=== PATIENT | female | born 1950 | race Caucasian/White ===

== ENCOUNTER 2019-12-03 11:13 | Inpatient (IN) | payer MEDICARE, MEDICAID ==
[2019-12-03] MEDS ORDERED: Potassium Chloride 40 MEQ in Sodium Chloride 0.9% 250 ML 250 ML IVPB SCH ×2 (12:00→19:30)
[2019-12-03] MEDS ORDERED: Ondansetron PF 4 MG/2 ML Vial ONE (12:01)
[2019-12-03 12:28] LABS: Mean Corpuscular HGB CONC 33.2 g/dL (32.0-36.0); Mean Corpuscular Hemoglobin 31.1 pg (27.0-31.0); Mean Corpuscular Volume 93.8 fL (78.0-98.0); Mean Platelet Volume 10.6 fL (7.4-10.4); Platelet Count 276 thou/uL (130-400); RBC Distribution Width 14.3 % (11.5-14.5); Red Blood Cell (RBC) Count 4.49 mill/uL (4.20-5.40); White Blood Cell (WBC) Count 11.7 thou/uL (4.8-10.8)
[2019-12-03 12:44] LABS: ALT (SGPT) 7 U/L (8-55); AST (SGOT) 9 U/L (5-34); Albumin 3.9 g/dL (3.4-4.8); Alkaline Phosphatase 254 U/L (40-110); Anion Gap 18 mmol/L (10-20); BUN (Urea Nitrogen) 36 mg/dL (9.8-20.1); Bilirubin, Total 0.4 mg/dL (0.2-1.2); Calc. Creatinine Clearance 0 mL/min (70-130); Calcium 8.6 mg/dL (7.8-10.44); Carbon Dioxide 10 mmol/L (23-31); Chloride 116 mmol/L (98-107); Estimated GFR-MDRD 22; Globulin 4.3 g/dL (2.4-3.5); Glucose 128 mg/dL (80-115); Magnesium 1.4 mg/dL (1.6-2.6); Protein, Total 8.2 g/dL (6.0-8.3); Sodium 141 mmol/L (136-145)
[2019-12-03 12:47] LABS: Band 43 % (5-11); Lymphocytes 12 % (21-51); MDiff Complete? YES; Monocytes 8 % (0-10); Neutrophil 35 % (42-75); Platelet Morphology Comment Appears Adequate; Reactive Lymphocytes 1 % (0-10); Reflex for Review?? NO; Vacuoles SLIGHT
[2019-12-03 13:02] LABS: Potassium 2.9 mmol/L (3.5-5.1)
[2019-12-03] MEDS ORDERED: Magnesium 2 GM/50 ML BAG (IN WATER) ONE (13:17)
[2019-12-03] MEDS ORDERED: Potassium Chloride 20 MEQ TAB ONE (13:17)
--- NOTE | 2019-12-03 13:24 | PDOC.HHP ---
Hospitalist HPI - History of Present Illness nausea, vomiting, diarrhea History of Present Illness: 68-year-old female w/ mhx of CHFrEF, LBBB (not on lifevest due to blindness as per recent DC summary), HTN, CVA, COPD, gastritis, presents from rehab for nausea, vomiting, and diarrhea for the past week. Started suddenly, 4-5 daily bowel movement, soft but not watery, not associated with abdominal pain, melena, or hematochezia, recent antibiotic use or hospitalization. Came to the ED yetserday, CT abdomen was negative, and was sent back to rehab but nausea and vomiting persisted, so came back to the ED. On encounter. lying comfortably in bed and has no complaints. Endorses no additional epsiodes of n/v but had an episode of watery diarrhea on arrival to the floor. Denies lightheadedness, dizziness, dysphagia, chest pain, palpitations, dyspnea, abdominal pain, dysuria, hematuria, polyuria, increased urinary frequency, muscle pain, focal weakness. ED Course: In the ED, started on fluids, supplemented with potassium and magnesium, and admitted for further management Hospitalist ROS - Review of Systems Constitutional: denies: chills, sweats Respiratory: denies: cough, shortness of breath Cardiovascular: denies: chest pain, palpitations, orthopnea, edema Gastrointestinal: reports: diarrhea. 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: CVA Gastrointestinal: reports: Gastritis Psych: reports: Depression Infectious Disease: denies: HIV Endocrine: denies: Hyperthyroidism - Past Surgical History Other Surgical History: rotator cuff, lower intestine surgery - Family History Family History: reports: no pertinent history - Social History Smoking Status: Former smoker (quit less than 10 years ago) Alcohol: reports: None Drugs: reports: none Living Situation: With Family - Exam General Appearance: NAD, awake alert ENT: moist mucosa Neck: no JVD Heart: RRR, no gallops, no rubs Respiratory: CTAB, no wheezes, no rales, no ronchi Gastrointestinal: soft, non-tender, non-distended, normal bowel sounds Extremities: no edema Psychiatric: normal affect, normal behavior, A&O x 3 Hospitalist Results - Labs Result Diagrams: 12/03/19 12:11 12/03/19 14:39 Lab results: WBC 11.7 thou/uL (4.8-10.8) H 12/03/19 12:11 Hgb 14.0 g/dL (12.0-16.0) 12/03/19 12:11 Hct 42.2 % (36.0-47.0) 12/03/19 12:11 MCV 93.8 fL (78.0-98.0) 12/03/19 12:11 Plt Count 276 thou/uL (130-400) 12/03/19 12:11 Band Neuts % (Manual) 43 % (5-11) H 12/03/19 12:11 Sodium 141 mmol/L (136-145) 12/03/19 12:11 Potassium 2.9 mmol/L (3.5-5.1) L* 12/03/19 12:11 Chloride 116 mmol/L (98-107) H 12/03/19 12:11 Carbon Dioxide 10 mmol/L (23-31) L 12/03/19 12:11 BUN 36 mg/dL (9.8-20.1) H 12/03/19 12:11 Creatinine 2.25 mg/dL (0.6-1.1) H 12/03/19 12:11 Glucose 128 mg/dL (80-115) H 12/03/19 12:11 Calcium 8.6 mg/dL (7.8-10.44) 12/03/19 12:11 Total Bilirubin 0.4 mg/dL (0.2-1.2) 12/03/19 12:11 AST 9 U/L (5-34) 12/03/19 12:11 ALT 7 U/L (8-55) L 12/03/19 12:11 Alkaline Phosphatase 254 U/L (40-110) H 12/03/19 12:11 Serum Total Protein 8.2 g/dL (6.0-8.3) 12/03/19 12:11 Albumin 3.9 g/dL (3.4-4.8) 12/03/19 12:11 - EKG Interpretation EKG: LBBB (old); DENISE but doesn't meet sgarbosa. No interval change compared to EKG in 11/19/2019 Hospitalist H&P A/P - Problem (1) CHF (congestive heart failure), NYHA class III Code(s): I50.9 - HEART FAILURE, UNSPECIFIED Status: Acute (2) Left bundle branch block (LBBB) Code(s): I44.7 - LEFT BUNDLE-BRANCH BLOCK, UNSPECIFIED Status: Acute (3) Legal blindness Code(s): H54.8 - LEGAL BLINDNESS, DEFINED IN [place] Status: Acute (4) COPD (chronic obstructive pulmonary disease) Status: Acute (5) Hypertension Code(s): I10 - ESSENTIAL (PRIMARY) HYPERTENSION Status: Acute - Plan Plan: #acute community acquired gastroenteritis/colitis -high risk for complications (age, heart disease) -cipro 500mg PO bid; if c. diff positive, change to vancomycin -IVF, gentle considering significantly reduced cardiac function -loperamide -electrolyte replacement -c. diff, stool studies #HFrEF Class III -signficantly reduced HF, QRS > 150ms; candidate for Biv pacing but was assessed by cardiology in previous admission and reportedly not approved for SCD PPx due to blindness -currently volume depleted -consult EP for DIGITAL MARKETING EXECUTIVE -pending medication reconciliation #HTN pending medication reconciliation #COPD -well controlled; resume home meds after reconciliation #legally blind aid with meals Full code ELOS: 1-2 nights
[2019-12-03] MEDS ORDERED: Ondansetron PF 4 MG/2 ML Vial IVP PRN (14:09)
[2019-12-03 15:08] LABS: Anion Gap 20 mmol/L (10-20); BUN (Urea Nitrogen) 36 mg/dL (9.8-20.1); Calc. Creatinine Clearance 0 mL/min (70-130); Calcium 8.8 mg/dL (7.8-10.44); Chloride 116 mmol/L (98-107); Estimated GFR-MDRD 24; Glucose 115 mg/dL (80-115); Sodium 141 mmol/L (136-145)
[2019-12-03 15:17] LABS: Carbon Dioxide 8 mmol/L (23-31); Potassium 2.7 mmol/L (3.5-5.1)
[2019-12-03 18:31] LABS: BUN (Urea Nitrogen) 37 mg/dL (9.8-20.1); Calc. Creatinine Clearance 0 mL/min (70-130); Calcium 8.7 mg/dL (7.8-10.44); Chloride 118 mmol/L (98-107); Estimated GFR-MDRD 25; Glucose 104 mg/dL (80-115); Potassium 3.2 mmol/L (3.5-5.1); Sodium 140 mmol/L (136-145)
[2019-12-03 18:35] LABS: Carbon Dioxide Less than 8 mmol/L (23-31)
[2019-12-03] MEDS ORDERED: Loperamide HCl 2 MG CAP PO PRN (19:00)
[2019-12-03] MEDS ORDERED: traZODone HCl 50 MG TAB PO PRN (19:00)
[2019-12-03] MEDS ORDERED: Nitroglycerin 0.4 MG TAB (25 Tab Bottle) SL PRN (19:00)
[2019-12-03] MEDS ORDERED: Calcium Carbonate 500 MG ChewTAB PO PRN (19:00)
[2019-12-03] MEDS ORDERED: Bisacodyl 10 MG SUPP PR PRN (19:00)
[2019-12-03] MEDS ORDERED: Cepastat Lozenges 1 LOZ PO PRN (19:08)
[2019-12-03] MEDS ORDERED: Sodium Bicarbonate 50 MEQ in Dextrose 5% in Water 250 ML IV SCH (19:45)
[2019-12-03] MEDS: Sodium Bicarbonate 150 MEQ in Dextrose 5% in Water 1,000 ML IV SCH (20:54)
[2019-12-03] MEDS: Carvedilol 3.125 MG TAB PO SCH (20:54)
[2019-12-03] MEDS: Ciprofloxacin 500 MG TAB PO SCH (20:54)
[2019-12-04 01:44] LABS: Anion Gap 14 mmol/L (10-20); BUN (Urea Nitrogen) 37 mg/dL (9.8-20.1); Calc. Creatinine Clearance 27 mL/min (70-130); Calcium 8.5 mg/dL (7.8-10.44); Carbon Dioxide 13 mmol/L (23-31); Chloride 118 mmol/L (98-107); Estimated GFR-MDRD 30; Glucose 100 mg/dL (80-115); Potassium 3.7 mmol/L (3.5-5.1); Sodium 141 mmol/L (136-145)
[2019-12-04 04:59] LABS: #Eosinphils 0.2 thou/uL (0.0-0.7); #Lymphocytes 1.1 thou/uL (1.20-3.40); #Monocytes 0.7 thou/uL (0.11-0.59); #Neutrophils 6.3 thou/uL (1.40-6.50); %Basophils 0.2 % (0.0-1.0); %Eosinophils 1.8 % (0.0-10.0); %Lymphocytes 13.7 % (21.0-51.0); %Monocytes 8.9 % (0.0-10.0); %Neutrophils 75.4 % (42.0-75.0); Hemoglobin 12.2 g/dL (12.0-16.0); Mean Corpuscular HGB CONC 33.2 g/dL (32.0-36.0); Mean Corpuscular Hemoglobin 30.5 pg (27.0-31.0); Mean Corpuscular Volume 91.9 fL (78.0-98.0); Mean Platelet Volume 10.5 fL (7.4-10.4); Platelet Count 252 thou/uL (130-400); RBC Distribution Width 14.3 % (11.5-14.5); Red Blood Cell (RBC) Count 4.01 mill/uL (4.20-5.40); White Blood Cell (WBC) Count 8.3 thou/uL (4.8-10.8)
[2019-12-04 05:23] LABS: Anion Gap 14 mmol/L (10-20); BUN (Urea Nitrogen) 36 mg/dL (9.8-20.1); Calc. Creatinine Clearance 29 mL/min (70-130); Calcium 8.6 mg/dL (7.8-10.44); Carbon Dioxide 13 mmol/L (23-31); Chloride 117 mmol/L (98-107); Estimated GFR-MDRD 33; Glucose 104 mg/dL (80-115); Potassium 3.3 mmol/L (3.5-5.1); Sodium 141 mmol/L (136-145)
[2019-12-04] MEDS: Ciprofloxacin 500 MG TAB PO SCH ×2 (06:24→20:26)
[2019-12-04] MEDS ORDERED: Potassium Chloride 40 MEQ in Premix Bag 1 BAG IVPB SCH (07:30)
[2019-12-04] MEDS ORDERED: Potassium Chloride 40 MEQ in Sodium Chloride 0.9% 250 ML 250 ML IVPB SCH ×2 (07:45→17:30)
[2019-12-04] MEDS: Clopidogrel Bisulfate 75 MG TAB PO SCH (08:07)
[2019-12-04] MEDS: Carvedilol 3.125 MG TAB PO SCH ×2 (08:07→20:27)
[2019-12-04] MEDS: Enoxaparin Sodium 30 MG/0.3 ML SYRINGE SC SCH (08:07)
[2019-12-04] MEDS: Bupropion 150 MG XL TAB PO SCH (08:07)
[2019-12-04] MEDS: Acetaminophen 500 MG TAB PO PRN ×2 (08:09→20:27)
[2019-12-04] MEDS ORDERED: hydrALAZINE 20 MG/ML VIAL SLOW IVP PRN (14:08)
--- NOTE | 2019-12-04 14:23 | CON ---
DATE OF CONSULTATION: 12/04/2019 Dictated by Edna Tracey, Nurse Practitioner, as scribe for Dr. Juan Kim. ELECTROPHYSIOLOGY CONSULTATION: REASON FOR CONSULTATION: Consideration of pacemaker defibrillator, cardiomyopathy. CONSULTING PHYSICIAN: Dr. Juan Kim. HISTORY OF PRESENT ILLNESS: Ms. Valente is a 68-year-old woman, who is followed by Dr. Jain for Cardiology. She was diagnosed with [id number] cardiomyopathy in 2013. At that time, there is no significant CAD. Her LVEF recovered in 2015, but once again dropped to approximately 46% in 2018 by a stress test. She has no history of coronary artery disease. She was hospitalized earlier this month with acute on chronic systolic heart failure and was found to have an LVEF of 25% to 30%. Left heart catheterization was performed and did not reveal any significant coronary artery disease. She underwent evaluation for a LifeVest, but there were concerns with her operating the device, being legally blind and living alone. She was started on guideline directed medication therapy and discharged. She recently returned to the hospital, reporting nausea, vomiting, and diarrhea for 1 week with 4 to 5 bowel movements a day. On 12-lead EKG, she was seen to have a significantly widened QRS, greater than 150 milliseconds, and a left bundle-branch block pattern, and EP consideration for a LICENSED ESTHETICIAN device has been requested. Ms. Valente is resting in bed. She denies any heart racing, palpitations, chest pain/pressure, syncope, stroke, or stroke-like symptoms. She has had no dizziness or near passing out episodes. She has not noticed any worsening shortness of breath since discharge from her recent hospitalization. She does endorse ongoing diarrhea. REVIEW OF SYSTEMS: A 12-point review of systems is unremarkable except that listed above in the HPI. PAST MEDICAL HISTORY: 1. Hypertension. 2. Hyperlipidemia. 3. Nonischemic cardiomyopathy, HFrEF, LVEF 25% to 30% by echo on 11/20/2019, previously 46% in 2018. 4. COPD. 5. Prior stroke. 6. Acid reflux. 7. Legally blind. 8. Left heart catheterization in November 2019 revealing no significant coronary artery disease. No prior PCI. 9. Ongoing tobacco habituation. FAMILY HISTORY: Positive for coronary artery disease, early-onset. Negative for sudden cardiac . SOCIAL HISTORY: She is legally blind. She resides alone. She does not work. She has home health throughout the week. ALLERGIES: NO KNOWN DRUG ALLERGIES. HOME MEDICATIONS: 1. Trazodone. 2. Cepacol. 3. Gas Relief. 4. Nitro sublingual p.r.n. 5. Milk of magnesia p.r.n. 6. Guaifenesin DM p.r.n. 7. MiraLAX 17 g daily. 8. Protonix 40 mg daily. 9. Lisinopril 10 mg daily. 10. Gemfibrozil 600 mg p.o. b.i.d. 11. Clopidogrel 75 mg b.i.d. 12. Carvedilol 3.125 mg b.i.d. 13. Bupropion 150 mg daily. 14. Atorvastatin 40 mg p.o. at bedtime. OBJECTIVE: VITAL SIGNS: Height is 5 feet and 4 inches. Weight 119 pounds. BMI is 20. Temperature is 98.6, pulse 63, blood pressure 162/71, respirations 16, and oxygen 99% on room air. GENERAL: The patient is alert. She is oriented. She is in no apparent distress, resting comfortably in bed at the time of the exam. She is thin. She appears much older than her stated age. HEENT: She is normocephalic and atraumatic. Her sclerae are anicteric. Her oral mucosa is moist and pink with poor dentition. NECK: Supple without jugular venous distention. There is no lymphadenopathy. Her trachea is midline. Her carotids are without bruit. HEART: Rate is regularly regular with crisp S1 and S2. PMI is nondisplaced. LUNGS: Clear to auscultation with slight expiratory wheezes bilaterally. Respirations are even and unlabored with good bilateral excursion. ABDOMEN: Soft, nontender without palpable masses. Hepatojugular reflux is negative. EXTREMITIES: Warm and dry to touch. Well perfused without clubbing, cyanosis, or edema. NEUROLOGIC: Grossly intact and nonfocal. Gait was not assessed. LABORATORY DATA: Hematology was reviewed and unremarkable. Chemistry: Potassium 2.9 on admission, currently 3.3; creatinine 2.25 on admission, currently 1.55; magnesium 1.4 on admission, currently 2.1. Telemetry and EKG show sinus rhythm with an underlying left bundle-branch block, currently 178 milliseconds, also suggestive of left ventricular hypertrophy. Reports from prior EKGs dating back to 2017 were reviewed. In 2017, her QRS was 138 milliseconds and a left bundle-branch block morphology. In August 2017, her QRS was 166 milliseconds and a left bundle-branch block morphology. Echocardiogram performed on 11/20/2019, reveals LVEF 25% to 30% (previously 46% in 2018 on a stress test that was negative for ischemia). Normal left heart catheterization on 11/21/2019. No prior history of PCI. IMPRESSION: 1. Nonischemic cardiomyopathy, heart failure with reduced ejection fraction, recently assessed at 25% to 30% on 11/20/2019. 2. History of left bundle-branch block, gradually progressive. 3. Acute gastroenteritis with volume depletion. 4. Legally blind with a prior CVA. 5. Depression. 6. Electrolyte imbalance with recent replacement of potassium and magnesium. PLAN AND RECOMMENDATIONS: Ms. Valente is a 68-year-old woman, recently found to have a severely reduced LVEF by echo on 11/20/2019. She was started on guideline directed medication therapy and discharged from the hospital. She recently readmitted with acute gastroenteritis and volume depletion. She is seen to have significant left bundle-branch block dating back to at least 2017 that has been gradually progressive, but I do not feel this is a significant contributor to her recent worsening of her congestive heart failure and ejection fraction. There has been little progression in her widening QRS over the past two years. She is still currently undergoing medical optimization and standard congestive heart failure care. I would recommend repeating echocardiogram after 02/18/2020, and if her LVEF remains less than or equal to 35%, consideration for biventricular ICD could be made at that time. The telemetry does not show any sinus node dysfunction at this time or concern for advanced AV block and there is no indication to proceed early with implant at this time. Thank you for allowing me to participate in the care of this patient. Job ID: [id number]
[2019-12-04 16:41] LABS: Anion Gap 14 mmol/L (10-20); BUN (Urea Nitrogen) 32 mg/dL (9.8-20.1); Calc. Creatinine Clearance 33 mL/min (70-130); Calcium 8.5 mg/dL (7.8-10.44); Carbon Dioxide 14 mmol/L (23-31); Chloride 114 mmol/L (98-107); Estimated GFR-MDRD 38; Glucose 76 mg/dL (80-115); Potassium 3.4 mmol/L (3.5-5.1); Sodium 139 mmol/L (136-145)
[2019-12-04] MEDS ORDERED: Dextrose 5% in Water 1,000 ML IV PRN (17:00)
[2019-12-04] MEDS ORDERED: Dextrose 50% Abboject 50 ML SYRINGE SLOW IVP PRN (17:00)
[2019-12-04] MEDS ORDERED: Electrolyte Replacement Protoc 1 EACH EACH FS SCH (17:00)
[2019-12-04] MEDS ORDERED: Electrolyte Replacement Protocol FS PRN (17:15)
--- NOTE | 2019-12-04 18:38 | PDOC.HOSPP ---
- Subjective Encounter Date: 12/04/19 Encounter Time: 09:00 Subjective: no overnight events. this morning, feeling well and has no complaints. Had loose but not liquidy bowel movements. - Objective Vital Signs & Weight: Vital Signs (12 hours) Temp Pulse Resp BP Pulse Ox 12/04/19 12:45 97.6 F 67 16 153/70 H 99 12/04/19 08:15 98.6 F 63 16 162/71 H 99 Weight Weight 119 lb 6.4 oz Result Diagrams: 12/04/19 04:28 12/04/19 16:06 Hospitalist ROS - Review of Systems Constitutional: denies: chills, sweats Cardiovascular: denies: chest pain, palpitations, orthopnea Gastrointestinal: reports: diarrhea. denies: nausea, vomiting, abdominal pain, melena, hematochezia Genitourinary: denies: dysuria, hematuria - Medication Medications: Active Medications Generic Name Dose Route Start Last Admin Trade Name Freq PRN Reason Stop Dose Admin Acetaminophen 500 mg 12/03/19 19:00 12/04/19 08:09 Acetaminophen 500 Mg Tab PO 500 mg Q4H PRN Administration Headache/Fever or Pain Bupropion HCl 150 mg 12/04/19 09:00 12/04/19 08:07 Bupropion 150 Mg Xl Tab PO 150 mg DAILY CAMRON Administration Ciprofloxacin 500 mg 12/03/19 20:00 12/04/19 06:24 Ciprofloxacin 500 Mg Tab PO 500 mg 06,1999 CAMRON Administration Clopidogrel Bisulfate 75 mg 12/04/19 09:00 12/04/19 08:07 Clopidogrel Bisulfate 75 Mg Tab PO 75 mg DAILY CAMRON Administration Enoxaparin Sodium 30 mg 12/04/19 09:00 12/04/19 08:07 Enoxaparin Sodium 30 Mg/0.3 Ml Syringe SC 30 mg 0900 CAMRON Administration Sodium Bicarbonate 150 meq/ 1,150 mls @ 60 mls/hr 12/03/19 15:45 12/03/19 20:54 Dextrose/Water IV 1,150 mls INF CAMRON Administration Potassium Chloride 40 meq/ 270 mls @ 67.5 mls/hr 12/04/19 17:30 12/04/19 18:11 Sodium Chloride IVPB 12/04/19 21:29 270 mls NOW CAMRON Administration Pantoprazole Sodium 40 mg 12/04/19 09:00 12/04/19 08:07 Pantoprazole 40 Mg Tab PO 40 mg DAILY CAMRON Administration Sodium Chloride 10 ml 12/04/19 09:00 12/04/19 08:08 Flush - Normal Saline 10 Ml Syringe IVF 10 ml Q12HR CAMRON Administration - Exam General Appearance: NAD, awake alert Neck: no JVD Heart: RRR, no murmur, no gallops, no rubs Respiratory: CTAB, no wheezes, no rales, no ronchi Extremities: no edema Psychiatric: normal affect, normal behavior, oriented to person, oriented to place. negative: oriented to time Hosp A/P (1) CHF (congestive heart failure), NYHA class III Code(s): I50.9 - HEART FAILURE, UNSPECIFIED Status: Acute (2) Left bundle branch block (LBBB) Code(s): I44.7 - LEFT BUNDLE-BRANCH BLOCK, UNSPECIFIED Status: Acute (3) Legal blindness Code(s): H54.8 - LEGAL BLINDNESS, DEFINED IN [place] Status: Acute (4) COPD (chronic obstructive pulmonary disease) Status: Acute (5) Hypertension Code(s): I10 - ESSENTIAL (PRIMARY) HYPERTENSION Status: Acute - Plan #acute community acquired gastroenteritis/colitis -high risk for complications (age, heart disease) -based on emr medications, has had subacute/chronic diarrhea. per patient, has had diarrhea for months -stop ABx; c. diff assay performed during last admission and was negative -IVF, gentle considering significantly reduced cardiac function -loperamide PRN -electrolyte replacement #HFrEF Class III -signficantly reduced HF, QRS > 150ms; candidate for Biv pacing but was assessed by cardiology in previous admission and reportedly not approved for SCD PPx due to blindness -appreciated EP recs; patient will need to repeat ECHO in February, then decision regarding Biv; can't get lifevest due to blindness -euvolemic -resumed home meds #HTN resumed home meds #COPD -well controlled; resume home meds after reconciliation #legally blind aid with meals Full code ELOS: 1 night
[2019-12-04] MEDS ORDERED: Atorvastatin Calcium 40 MG TAB PO SCH (21:00)
[2019-12-04] MEDS: Sodium Bicarbonate 150 MEQ in Dextrose 5% in Water 1,000 ML IV SCH (22:46)
[2019-12-05 04:56] LABS: Anion Gap 9 mmol/L (10-20); BUN (Urea Nitrogen) 23 mg/dL (9.8-20.1); Calc. Creatinine Clearance 40 mL/min (70-130); Calcium 8.1 mg/dL (7.8-10.44); Carbon Dioxide 19 mmol/L (23-31); Chloride 116 mmol/L (98-107); Estimated GFR-MDRD 47; Glucose 87 mg/dL (80-115); Magnesium 1.7 mg/dL (1.6-2.6); Potassium 3.3 mmol/L (3.5-5.1); Sodium 141 mmol/L (136-145)
[2019-12-05] MEDS: Ciprofloxacin 500 MG TAB PO SCH (05:19)
[2019-12-05] MEDS ORDERED: Magnesium 2 GM/50 ML 2 GM in Premix Bag 1 BAG IVPB SCH (06:30)
[2019-12-05] MEDS ORDERED: Potassium Chloride 20 MEQ TAB PO SCH ×2 (06:45→10:00)
[2019-12-05] MEDS ORDERED: Loperamide HCl 2 MG CAP PO PRN (07:37)
[2019-12-05] MEDS ORDERED: Sodium Bicarb 50 MEQ/50 ML Abboject 8.4% SYRINGE IVP SCH (07:45)
[2019-12-05] MEDS: Enoxaparin Sodium 30 MG/0.3 ML SYRINGE SC SCH (08:42)
[2019-12-05] MEDS: Clopidogrel Bisulfate 75 MG TAB PO SCH (08:43)
[2019-12-05] MEDS: Bupropion 150 MG XL TAB PO SCH (08:43)
[2019-12-05] MEDS: Carvedilol 3.125 MG TAB PO SCH (08:43)
[2019-12-05] MEDS: Acetaminophen 500 MG TAB PO PRN (08:43)
[2019-12-05] MEDS ORDERED: Lisinopril 10 MG TAB PO SCH (09:00)
[2019-12-05 17:19] VITALS: BP 164/84; TEMP 98.5
--- NOTE | 2019-12-05 17:28 | PDOC.EP ---
- Subjective Date: 12/05/19 Time: 09:00 - Objective Allergies/Adverse Reactions: Allergies Allergy/AdvReac Type Severity Reaction Status Date / Time No Known Allergies Allergy Verified 12/04/19 00:03 Current Medications Acetaminophen (Acetaminophen 500 Mg Tab) 500 mg PO Q4H PRN PRN Reason: Headache/Fever or Pain Last Admin: 12/05/19 08:43 Dose: 500 mg Documented by: Atorvastatin Calcium (Atorvastatin Calcium 40 Mg Tab) 40 mg PO HS [facility] Last Admin: 12/04/19 20:26 Dose: 40 mg Documented by: Bisacodyl (Bisacodyl 10 Mg Supp) 10 mg AL PRN PRN PRN Reason: Constipation Bupropion HCl (Bupropion 150 Mg Xl Tab) 150 mg PO DAILY [facility] Last Admin: 12/05/19 08:43 Dose: 150 mg Documented by: Calcium Carbonate (Calcium Carbonate 500 Mg Chewtab) 500 mg PO Q6H PRN PRN Reason: Indigestion Carvedilol (Carvedilol 3.125 Mg Tab) 6.25 mg PO BID [facility] Last Admin: 12/05/19 08:43 Dose: 6.25 mg Documented by: Clopidogrel Bisulfate (Clopidogrel Bisulfate 75 Mg Tab) 75 mg PO DAILY [facility] Last Admin: 12/05/19 08:43 Dose: 75 mg Documented by: Dextrose/Water (Dextrose 50% Abboject 50 Ml Syringe) 25 gm SLOW IVP PRN PRN PRN Reason: Hypoglycemia Enoxaparin Sodium (Enoxaparin Sodium 30 Mg/0.3 Ml Syringe) 30 mg SC 0900 [facility] Last Admin: 12/05/19 08:42 Dose: 30 mg Documented by: Glucagon (Glucagon 1 Mg/Ml Vial) 1 mg IM PRN PRN PRN Reason: Hypoglycemia Hydralazine HCl (Hydralazine 20 Mg/Ml Vial) 10 mg SLOW IVP Q4H PRN PRN Reason: BP > 180/120 Sodium Bicarbonate 150 meq/ (Dextrose/Water) 1,150 mls @ 60 mls/hr IV INF [facility] Last Admin: 12/04/19 22:46 Dose: 1,150 mls Documented by: Dextrose/Water (D5w) 1,000 mls @ 0 mls/hr IV .Q0M PRN PRN Reason: Hypoglycemia Lisinopril (Lisinopril 10 Mg Tab) 10 mg PO DAILY [facility] Last Admin: 12/05/19 08:43 Dose: 10 mg Documented by: Loperamide HCl (Loperamide Hcl 2 Mg Cap) 2 mg PO Q2H PRN PRN Reason: Diarrhea/Loose Stools Miscellaneous Medication (Electrolyte Replacement Protocol) 0 each FS ASDIR PRN; Protocol PRN Reason: ELECTROLYTE REPLACEMENT Nitroglycerin (Nitroglycerin 0.4 Mg Tab (25 Tab Bottle)) 0.4 mg SL Q5MIN PRN PRN Reason: Chest Pain Ondansetron HCl (Ondansetron Pf 4 Mg/2 Ml Vial) 4 mg IVP Q6H PRN PRN Reason: Nausea/Vomiting Pantoprazole Sodium (Pantoprazole 40 Mg Tab) 40 mg PO DAILY [facility] Last Admin: 12/05/19 08:43 Dose: 40 mg Documented by: Sodium Chloride (Flush - Normal Saline 10 Ml Syringe) 10 ml IVF Q12HR [facility] Last Admin: 12/05/19 08:44 Dose: 10 ml Documented by: Sodium Chloride (Flush - Normal Saline 10 Ml Syringe) 10 ml IVF PRN PRN PRN Reason: Saline Flush Throat Lozenges (Cepastat Lozenges 1 Tatianna) 1 tatianna PO BIDPRN PRN PRN Reason: SORE THROAT Trazodone HCl (Trazodone Hcl 50 Mg Tab) 50 mg PO HSPRN PRN PRN Reason: Insomnia Last Admin: 12/04/19 20:27 Dose: 50 mg Documented by: Vital Signs & Weight: Vital Signs Temp Pulse Resp BP Pulse Ox 12/05/19 15:45 98.5 F 67 16 164/84 H 97 12/05/19 12:10 98.1 F 62 20 166/75 H 98 12/05/19 08:15 98.5 F 67 16 183/79 H 97 Weight 116 lb 14.4 oz I/O: I/O 12/04/19 12/05/19 12/06/19 06:59 06:59 06:59 Intake Total 2375 Balance 2375 - Labs Result Diagrams: 12/04/19 04:28 12/05/19 04:08 - Assessment/Plan Assessment/Plan: IMPRESSION: 1. Nonischemic cardiomyopathy, heart failure with reduced ejection fraction, recently assessed at 25% to 30% on 11/20/2019. 2. History of left bundle-branch block, gradually progressive. 3. Acute gastroenteritis with volume depletion. 4. Legally blind with a prior CVA. 5. Depression. 6. Electrolyte imbalance with recent replacement of potassium and magnesium. PLAN AND RECOMMENDATIONS: Ms. Valente is a 68-year-old woman, recently found to have a severely reduced LVEF by echo on 11/20/2019. She was then started on guideline directed medication therapy and discharged from the hospital. She recently readmitted with acute gastroenteritis and volume depletion. She is seen to have significant left bundle-branch block dating back to at least 2017 that has been gradually progressive, but I do not feel this is a significant contributor to her recent worsening of her congestive heart failure and ejection fraction. There has been little progression in her widening QRS over the past two years. She is still currently undergoing medication optimization with Coreg and lisinopril, and standard congestive heart failure care with Cardiology. I would recommend repeating echocardiogram after 02/18/2020, and if her LVEF remains less than or equal to 35%, consideration for biventricular ICD could be made at that time. The telemetry does not show any sinus node dysfunction at this time or concern for advanced AV block and there is no indication for permanent pacemaker implant time.
--- NOTE | 2019-12-06 02:42 | DIS ---
DATE OF ADMISSION: 12/04/2019 DATE OF DISCHARGE: 12/05/2019 HOSPITAL COURSE: Ms. Valente is a 68-year-old female with medical history of CHF with reduced ejection fraction, left bundle branch block (not fitted with LifeVest due to blindness), hypertension, CVA, COPD, and gastritis, who presented from rehab due to nausea, vomiting, and diarrhea for the past week. The patient had similar symptoms on the previous admission, in which complete infectious workup was carried out and was negative. After discharge, the patient continued to have multiple bowel movements and frequency worsened, so she was sent back to the ED. She was diagnosed with gastroenteritis. Her electrolytes were corrected. The patient's bowel movements became more solid and less frequent. She was discharged to rehab, hemodynamically stable with no complaints. PHYSICAL EXAMINATION: VITAL SIGNS: Blood pressure 146/65, pulse 63, respiratory rate 20, oxygen saturation 97% on room air, temperature 98.1. GENERAL: Awake and alert, lying comfortably in bed, emaciated. HEENT: Normocephalic, atraumatic. Moist mucosa. NECK: No JVD. HEART: Regular rate and rhythm. No murmurs, gallops, or rubs. RESPIRATORY: Clear to auscultation bilaterally. No wheezing, rales or rhonchi. GI: Soft, nontender, nondistended. Normal bowel sounds. EXTREMITIES: No edema. PSYCHIATRIC: Normal affect. Normal behavior. Alert and oriented x3. DISCHARGE MEDICATIONS LIST: New medications: Loperamide 2 mg p.o. p.r.n. each loose bowel movement. No more than 16 mg in 24 hours. Continued medications: 1. Tylenol. 2. Atorvastatin. 3. Benzocaine/Menthol lozenges. 4. Bisacodyl p.r.n. 5. Bupropion. 6. Calcium carbonate. 7. Carvedilol. 8. Plavix. 9. Lisinopril. 10. Nitroglycerin p.r.n. 11. Pantoprazole. 12. Trazodone. 13. Gemfibrozil. 14. Guaifenesin p.r.n. 15. MiraLAX p.r.n. 16. Simethicone p.r.n. Discontinued medications: Milk of [employer] Job ID: [id number]
--- NOTE | 2019-12-06 13:08 | PQF ---
CLINICAL DOCUMENTATION CLARIFICATION FORM: Dear : Kyle Delvalle MD Date / Time: 12/06/2019 Please exercise your independent, professional judgment in responding to the clarification form. Clinical indicators are provided on the bottom of this form for your review Please check appropriate box(es): [ ] Protein Calorie Malnutrition: [ ] Mild [ ] Moderate [ ] Severe [ ] Other Malnutrition (please specify) [ ] Underweight without malnutrition [ ] Cachexia [ ] Other diagnosis (Please specify if any) [x ] Unable to determine In addition, please specify: Present on Admission (POA): [ x ] Yes [ ] No [ ] Unable to determine Physician Signature: Date/Time: For continuity of documentation, please document condition throughout progress notes and discharge summary. Thank You. To be completed by CDI/Coding staff for physician review: Present Clinical Indicators - Signs / Symptoms / Labs Results and Location in Medical Record [ x] Malnutrition, Failure to Thrive, Cachexia Cachectic ED provider report on 12/03 [ x] BMI of 20.1 ED provider report on 12/03 Two or More of the Following ASPEN Criteria: [ ] Unintentional Insufficient Energy Intake [ ] Weight Loss [ ] Loss of Muscle Mass [ x ] Acute gastroenteritis H&P on 12/02 [ x] Dehydration, hypokalemia ED provider report on 12/03 [ x ] ill-appearing ED provider report on 12/03 Present Risk Factors Results and Location in Medical Record [ ] Change in appetite / nausea / vomiting / diarrhea [ ] Inability to consume adequate caloric intake [ x ] Chronic illness gastritis ED provider report on 12/03 [ ] Medication [ ] PEG tube [ ] Short gut syndrome Present Treatments Results and Location in Medical Record [ x ] Electrolyte replacement protoc Medication 12/03 to 12/04 [ ] Nutritional supplements [ ] TPN / tube feedings [ ] Assistance with feeding [ ] Appetite stimulant - medication CDS/Kickboxing Instructor Signature: AAS Phone #: Date/Time: 12/06/2019 Moderate Malnutrition (in acute illness) ? Energy Intake: <75% of estimated energy requirement for > 7 days ? Weight Loss: 1-2%/1 week; 5%/ 1 month; 7.5%/3 months ? Other: mild body fat loss; mild muscle mass loss; mild fluid accumulation; Severe Malnutrition (in acute illness) ? Energy Intake: ? 50% of estimated energy requirement for ? 5 days ? Weight Loss: >2%/1 week; >5%/1 month; >7.5%/3 months ? Other: moderate body fat loss; moderate muscle mass loss; moderate- severe fluid accumulation; measurably reduced clothing patternmaker strength Moderate Malnutrition (in chronic illness) ? Energy Intake: <75% of estimated energy requirement for ?1 month ? Weight Loss: 5%/1 month; 7.5%/3 months; 10%/6 months; 20%/1 year ? Other: mild body fat loss; mild muscle mass loss; mild fluid accumulation Severe Malnutrition (in chronic illness) ? Energy Intake: ?75% of estimated energy requirement for ?1 month ? Weight Loss: >5%/1 month; >7.5%/3 months; >10%/6 months; >20%/1 year ? Other: severe body fat loss; severe muscle mass loss; severe fluid accumulation; measurably reduced clothing patternmaker strength This is a permanent part of the Medical Record MTDD
--- NOTE | 2019-12-06 13:18 | PQF ---
CLINICAL DOCUMENTATION CLARIFICATION FORM: Dear : Kyle Delvalle MD Date / Time: 12/06/2019 Please exercise your independent, professional judgment in responding to the clarification form. Clinical indicators are provided on the bottom of this form for your review Please check appropriate box(es): HEART FAILURE: A. ACUITY [ x] Acute [ ] Acute on Chronic [ ] Chronic B. TYPE: [ x ] Systolic / HFrEF [ ] Diastolic / HFpEF [ ] Combined Systolic / Diastolic [ ] Hypertensive Heart Disease [ ] Other diagnosis (Please sepcify if any) [ ] Unable to determine In addition, please specify: Present on Admission (POA): [x ] Yes [ ] No [ ] Unable to determine Physician Signature: Date/Time: For continuity of documentation, please document condition throughout progress notes and discharge summary. Thank You. To be completed by CDI/Coding staff for physician review: Present Clinical Indicators - Signs / Symptoms / Labs Results and Location in Medical Record [ ] Ejection Fraction = % [ ] Dyspnea, Hypoxia [ x ] Severly reduced LVEF by echo on 11/19 Consult on 12/03 [ x] CHF NYHA Class III status: Acute H&P on 12/02 [ x ] HfrEF Class III H&P on 12/02 [ ] Orthopnea / SOB / dyspnea [ ] Pleural effusion / pulmonary edema [X ] CHFrEF H&P on 12/02 [ ] Arrhythmia--tachycardia Present Risk Factors Results and Location in Medical Record [ ] History of CAD/ischemic heart disease [ x ] CKD Hypertension HTN H&P on 12/02 [ ] History of PA Present Treatments Results and Location in Medical Record [ x ] Carvedilol 3.125 mg PO Medication on 12/02 to 12/03 [x ] Carvedilol 6.25 mg PO Medication on 12/03, 12/04 [ ] IV or PO diuretics [ ] Oxygen [ ] AICD [ ] Cardiology Consult CDS/Space Systems Operations Superintendent Signature: AAS Phone #: Date/Time: 12/06/2019 This is a permanent part of the Medical Record [facility]
== END 2019-12-05 19:58 | DRG 391 ==
LOC: ERS 11:13 → T4-B 13:32 → 2NO 18:25 → OBSVTOIN 12-04 14:22
PROVIDERS: ADMIT Internal Medicine; ATTEND Internal Medicine
DX: K52.9 Noninfective gastroenteritis and colitis, unspecified (principal); I50.23 Acute on chronic systolic (congestive) heart failure; R64 Cachexia; I42.8 Other cardiomyopathies; N17.9 Acute kidney failure, unspecified; J44.9 Chronic obstructive pulmonary disease, unspecified; E78.5 Hyperlipidemia, unspecified; I11.0 Hypertensive heart disease with heart failure; F32.9 Major depressive disorder, single episode, unspecified; H54.8 Legal blindness, as defined in USA; E86.0 Dehydration; I44.7 Left bundle-branch block, unspecified; M17.9 Osteoarthritis of knee, unspecified; E87.6 Hypokalemia; E83.42 Hypomagnesemia; Z79.899 Other long term (current) drug therapy; Z86.73 Personal history of transient ischemic attack (TIA), and cerebral infarction without residual deficits; Z87.891 Personal history of nicotine dependence; Z68.20 Body mass index [BMI] 20.0-20.9, adult; E87.8 Other disorders of electrolyte and fluid balance, not elsewhere classified; E86.9 Volume depletion, unspecified
CPT/HCPCS: 36415; 36416; 80048; 80053; 83735; 84300; 85025; 93005; 96365; 96367; 96372; 96375; 96376; 99406; G0378; J1650; J2405; J3475; J3480; J3490; J7050; J7070

== ENCOUNTER 2019-12-29 19:26 | Emergency (ER) | payer MEDICARE, MEDICAID ==
[2019-12-29 20:40] LABS: Hemoglobin 13.4 g/dL (12.0-16.0); Mean Corpuscular HGB CONC 34.1 g/dL (32.0-36.0); Mean Corpuscular Hemoglobin 32.1 pg (27.0-31.0); Mean Corpuscular Volume 94.2 fL (78.0-98.0); Mean Platelet Volume 9.8 fL (7.4-10.4); Platelet Count 268 thou/uL (130-400); RBC Distribution Width 15.6 % (11.5-14.5); Red Blood Cell (RBC) Count 4.16 mill/uL (4.20-5.40); White Blood Cell (WBC) Count 7.5 thou/uL (4.8-10.8)
[2019-12-29 21:11] LABS: Band 1 % (5-11); Eosinophils 2 % (0-10); Lymphocytes 17 % (21-51); MDiff Complete? YES; Monocytes 2 % (0-10); Neutrophil 78 % (42-75)
[2019-12-29] MEDS ORDERED: Acetaminophen 325 MG TAB ONE (21:17)
[2019-12-29 21:51] LABS: ALT (SGPT) Less than 7 U/L (8-55); AST (SGOT) 11 U/L (5-34); Albumin 3.5 g/dL (3.4-4.8); Alkaline Phosphatase 228 U/L (40-110); Anion Gap 13 mmol/L (10-20); BUN (Urea Nitrogen) 20 mg/dL (9.8-20.1); Bilirubin, Total 0.3 mg/dL (0.2-1.2); Calc. Creatinine Clearance 0 mL/min (70-130); Calcium 8.1 mg/dL (7.8-10.44); Carbon Dioxide 16 mmol/L (23-31); Chloride 114 mmol/L (98-107); Estimated GFR-MDRD 53; Globulin 3.3 g/dL (2.4-3.5); Glucose 106 mg/dL (80-115); Lipase 11 U/L (8-78); Protein, Total 6.8 g/dL (6.0-8.3); Sodium 140 mmol/L (136-145)
[2019-12-29 21:57] LABS: Potassium 2.9 mmol/L (3.5-5.1)
[2019-12-29] MEDS ORDERED: Potassium Chloride 20 MEQ TAB ONE (22:26)
== END 2019-12-30 01:57 | disposition home or self-care (01) ==
LOC: ERS 19:26
DX: E87.6 Hypokalemia (principal); R19.7 Diarrhea, unspecified; I50.9 Heart failure, unspecified; E78.5 Hyperlipidemia, unspecified; I11.0 Hypertensive heart disease with heart failure; Z86.73 Personal history of transient ischemic attack (TIA), and cerebral infarction without residual deficits; J44.9 Chronic obstructive pulmonary disease, unspecified; F32.9 Major depressive disorder, single episode, unspecified; Z87.891 Personal history of nicotine dependence; Z79.899 Other long term (current) drug therapy
CPT/HCPCS: 36415; 80053; 83690; 85025; 99284

== ENCOUNTER 2020-01-01 13:40 | Inpatient (IN) | payer MEDICARE, MEDICAID, OTHER ==
[~2020-01-01 13:40] MED LIST: Iopamidol-370 76% 500 ML 1 ML ONE
[2020-01-01] MEDS ORDERED: Ondansetron PF 4 MG/2 ML Vial ONE ×2 (14:35→14:40)
--- NOTE | 2020-01-01 14:35 | RAD ---
XR Chest 1 View Portable HISTORY: Nausea and vomiting COMPARISON: 11/19/2019 FINDINGS: The heart size is mildly enlarged. The lungs are well expanded without focal areas of conso lidation, glenda pulmonary edema, pneumothorax or pleural effusions. Linear scarring at the lung bases is again noted. There are postop changes of right rotator cuff repair.. IMPRESSION: No radiographic evidence of acute cardiopulmonary process.
[2020-01-01 15:24] LABS: #Basophils 0.2 thou/uL (0.0-0.2); #Eosinphils 0.2 thou/uL (0.0-0.7); #Lymphocytes 0.2 thou/uL (1.20-3.40); #Monocytes 0.5 thou/uL (0.11-0.59); #Neutrophils 8.7 thou/uL (1.40-6.50); %Basophils 1.6 % (0.0-1.0); %Eosinophils 2.5 % (0.0-10.0); %Lymphocytes 1.6 % (21.0-51.0); %Monocytes 5.2 % (0.0-10.0); Hemoglobin 13.5 g/dL (12.0-16.0); Mean Corpuscular HGB CONC 32.3 g/dL (32.0-36.0); Mean Corpuscular Hemoglobin 30.8 pg (27.0-31.0); Mean Corpuscular Volume 95.3 fL (78.0-98.0); Mean Platelet Volume 9.9 fL (7.4-10.4); Platelet Count 149 thou/uL (130-400); RBC Distribution Width 15.3 % (11.5-14.5); Red Blood Cell (RBC) Count 4.37 mill/uL (4.20-5.40); White Blood Cell (WBC) Count 9.8 thou/uL (4.8-10.8)
[2020-01-01 15:41] LABS: ALT (SGPT) 9 U/L (8-55); AST (SGOT) 12 U/L (5-34); Albumin 3.5 g/dL (3.4-4.8); Alkaline Phosphatase 228 U/L (40-110); Anion Gap 16 mmol/L (10-20); BUN (Urea Nitrogen) 16 mg/dL (9.8-20.1); Bilirubin, Total 0.5 mg/dL (0.2-1.2); CK (CPK) 53 U/L (29-168); Calc. Creatinine Clearance 0 mL/min (70-130); Calcium 8.4 mg/dL (7.8-10.44); Carbon Dioxide 12 mmol/L (23-31); Chloride 116 mmol/L (98-107); Estimated GFR-MDRD 68; Globulin 3.5 g/dL (2.4-3.5); Glucose 96 mg/dL (80-115); Lipase 10 U/L (8-78); Potassium 3.4 mmol/L (3.5-5.1); Sodium 141 mmol/L (136-145)
[2020-01-01 15:52] LABS: Clarity Turbid (Clear); Specific Gravity, Urine 1.015 (1.002-1.036)
[2020-01-01 15:53] LABS: Bilirubin Negative (Negative); Glucose, Urine (Dipstick) Negative (Negative); Ketone, Urine Negative (Negative); Leukocyte Large Leu/uL (Negative); Nitrite Positive (Negative); Protein, Urine (Dipstick) 100 mg/dL (Neg-Trace); Urobilinogen 0.2 mg/dL (Less than 2)
[2020-01-01 15:54] LABS: Blood, Urine Large (Negative)
[2020-01-01 15:55] LABS: Bacteria/HPF 4+ HPF (None Seen); Squamous Epithelial 0-3 HPF (0-3)
[2020-01-01 16:10] LABS: CKMB 2.2 ng/mL (0-6.6)
[2020-01-01 17:48] LABS: Base Excess-Venous 0.4 mmol/L (-2.0 to 3.0); Bicarbonate (HCO3v) 24.3 mmol/L (22.0-28.0); CO2 Tension (PvCO2) 35.9 mmHg (40.0-50.0); Chloride 114 mmol/L (98-107); Hemoglobin - Calc 14.1 g/dL (12.0-16.0); Sodium 145 mmol/L (138-145); T. Carbon Dioxide 25.4 mmol/L (22.0-28.0); vO2 Saturation-calc 72.9 % (60.0-85.0)
[2020-01-01] MEDS ORDERED: cefTRIAXone\\ROCEPHIN 2 GM VIAL ONE (17:56)
[2020-01-01] MEDS ORDERED: Vancomycin 1 GM/200 ML BAG ONE (19:12)
[2020-01-01] MEDS ORDERED: Lorazepam 2 MG/ML VIAL ONE (19:27)
--- NOTE | 2020-01-01 19:38 | PDOC.HHP ---
Hospitalist HPI - History of Present Illness N/V/D History of Present Illness: PCP: Dr. Alok Espino ([place]) The patient is a 69-year-old female with a past medical history significant for gastritis, CHF, COPD and hypertension that presents to the emergency department via EMS for the above complaint. The patient was actually discharged from our hospital on 12/06/2019 for similar complaints. At that time she had severe nausea vomiting and diarrhea for the past week. Infectious work-up was done, and found to be negative. Discharge diagnosis was gastritis. Since the time of discharge, the patient reports that she has had chronic diarrhea, reporting 10 stools daily. Denies any recent travel, ingestion of uncooked foods. This morning at approximately 9:00 in the morning, she reports diffuse abdominal pain with nausea and vomiting. She describes the abdominal pain is aching, constant, exacerbated and relieved by nothing. She reports that she vomited reddish colored liquid, after drinking red Powerade. She denies any hematemesis or bile edematous. She denies any blood in her stools. She does report that her stools have been watery, approximately 10/day for the past 1-2 months. She has been taking loperamide as needed. She denies any urinary symptoms, denying dysuria frequency and urgency. She denies any recent fever or illness. She denies any chest pain, heart palpitations or shortness of breath. No known sick contacts. No known Covid contacts. EMS was called. Upon arrival, patient's vital signs were stable, D stick 166. Patient was taken to the emergency department for further evaluation. ED Course: VITAL SIGNS MonJan 01, 2020 13:57 RAKESH Mims Lacee BP: 148/73, MAP: 98, Pulse: 85, Resp: 20, Temp: 100.7 (Oral), Pain: 0, O2 sat: 98 on (Room Air), Time: 01/01/2020 13:57. VITAL SIGNS MonJan 01, 2020 15:49 RAKESH Casey Tram BP: 173/84, Pulse: 81, Temp: 99.7 (Oral), Pain: 10 (Constant), O2 sat: 95 on (Room Air), Time: 01/01/2020 15:49. VITAL SIGNS MonJan 01, 2020 16:44 RAKESH Casey Tram BP: 179/88, Resp: 18, Temp: 98.2 (Oral), Pain: 8 (Constant), O2 sat: 97 on (Room Air), Time: 01/01/2020 16:44. Medication administration: *Ativan injection 2 mg IV Push Acknowledged 19:27 01/01/2020 sodium chloride 0.9 % intravenous 1 L IV Fluid Infusion Acknowledged 19:27 01/01/2020 vancomycin in dextrose 5 % one g IV Piggy Back Given 19:18 01/01/2020 sodium chloride 0.9 % intravenous 1 L IV Fluid Infusion Given 18:15 01/01/2020 cefTRIAXone injection 2 g IV Piggy Back Given 18:13 01/01/2020 Zofran intravenous 8mg mg IV Push Given 14:42 01/01/2020 sodium chloride 0.9 % intravenous 1 L IV Fluid Infusion Given 14:38 01/01/2020 Hospitalist ROS - Review of Systems All other systems reviewed; all pertinent +/- noted in HPI/Subj - Medication Medications: carvedilol tablet : Strength - 25 mg : ORAL Patient Dose: 3.125 mg Oral 2 times a day (with meals). lisinopril tablet : Strength - 10 mg : ORAL Patient Dose: once a day. pantoprazole oral tablet,delayed release (DR/EC) : Strength - 40 mg : ORAL Patient Dose: 40 mg Oral 2 times a day. gemfibrozil tablet : Strength - 600 mg : ORAL Patient Dose: 2 times a day. traZODone tablet : Strength - 50 mg : ORAL Patient Dose: once a day (at bedtime). clopidogrel tablet : Strength - 75 mg : ORAL Patient Dose: once a day (in the morning). simvastatin TABLET : Strength - 10 mg : ORAL Patient Dose: 1 tab(s) Oral once a day (at bedtime). potassium chloride oral 40 mEq/15 mL : Strength - liquid : ORAL Patient Dose: 15 mL Oral every 12 hours.Take for low potassium Wellbutrin 150 mg p.o. daily Allergies: NKDA Hospitalist History - Past Medical History Source: patient, RN notes reviewed Cardiac: reports: CHF, HTN, Hyperlipidemia Pulmonary: reports: CVA/TIA/stroke (Approximately 20 years ago, no deficits), COPD GAMING DEALER: reports: Other (Left eye blind) Gastrointestinal: reports: Gastritis Psych: reports: Depression - Past Surgical History Past Surgical History: reports: Other (Rotator cuff, lower intestine surgery, left ACL, back surgery x5, left eye surgery) - Family History Other Family History: Noncontributory to this case. - Social History Smoking Status: Former smoker (Quit less than 10 years ago) Alcohol: reports: None Drugs: reports: none Living Situation: Alone Occupation: Does not work Activity level: uses cane/walker - Exam General Appearance: NAD, awake alert. negative: ill appearing Eye: anicteric sclera ENT: normocephalic atraumatic, dry oral mucosa Neck: supple, symmetric, no JVD Heart: RRR, no gallops, no rubs, normal peripheral pulses, III/IV Respiratory: CTAB, no wheezes, no rales, no ronchi, normal chest expansion, no tachypnea Gastrointestinal: soft, non-tender, non-distended, normal bowel sounds, no bruit, no guarding, no rigidity Extremities: no cyanosis, no edema Neurological: no focal deficits, vision deficit Neurological - other findings: Left eye blind, chronic Psychiatric: normal affect, A&O x 3 Hospitalist Results - Labs Result Diagrams: 01/01/20 15:06 01/01/20 15:06 Lab results: WBC 9.8 thou/uL (4.8-10.8) 01/01/20 15:06 Hgb 13.5 g/dL (12.0-16.0) 01/01/20 15:06 Hct 41.7 % (36.0-47.0) 01/01/20 15:06 MCV 95.3 fL (78.0-98.0) 01/01/20 15:06 Plt Count 149 thou/uL (130-400) 01/01/20 15:06 Neutrophils % 89.0 % (42.0-75.0) H 01/01/20 15:06 VBG pCO2 35.9 mmHg (40.0-50.0) L 01/01/20 17:43 VBG pO2 36.9 mmHg (35.0-45.0) 01/01/20 17:43 Sodium 141 mmol/L (136-145) 01/01/20 15:06 Potassium 3.4 mmol/L (3.5-5.1) L 01/01/20 15:06 Chloride 116 mmol/L (98-107) H 01/01/20 15:06 Carbon Dioxide 12 mmol/L (23-31) L 01/01/20 15:06 BUN 16 mg/dL (9.8-20.1) 01/01/20 15:06 Creatinine 0.83 mg/dL (0.6-1.1) 01/01/20 15:06 Glucose 96 mg/dL (80-115) 01/01/20 15:06 Lactic Acid 2.2 mmol/L (0.5-2.2) 01/01/20 17:10 Calcium 8.4 mg/dL (7.8-10.44) 01/01/20 15:06 Total Bilirubin 0.5 mg/dL (0.2-1.2) 01/01/20 15:06 AST 12 U/L (5-34) 01/01/20 15:06 ALT 9 U/L (8-55) 01/01/20 15:06 Alkaline Phosphatase 228 U/L (40-110) H 01/01/20 15:06 Creatine Kinase 53 U/L (29-168) 01/01/20 15:06 CK-MB (CK-2) 2.2 ng/mL (0-6.6) 01/01/20 15:06 Troponin I 0.043 ng/mL (< 0.028) H 01/01/20 15:06 B-Natriuretic Peptide 502.5 pg/mL (0-100) H 01/01/20 15:06 Serum Total Protein 7.0 g/dL (6.0-8.3) 01/01/20 15:06 Albumin 3.5 g/dL (3.4-4.8) 01/01/20 15:06 Lipase 10 U/L (8-78) 01/01/20 15:06 Urine Ketones Negative mg/dL (Negative) 01/01/20 15: Urine Blood Large (Negative) A 01/01/20 15: Urine Nitrite Positive (Negative) A 01/01/20 15:27 Ur Leukocyte Esterase Large Dax/uL (Negative) A 01/01/20 15:27 Urine RBC 11-20 HPF (0-3) A 01/01/20 15:27 Urine WBC 11-20 HPF (0-3) A 01/01/20 15:27 Ur Squamous Epith Cells 0-3 HPF (0-3) 01/01/20 15:27 Urine Bacteria 4+ HPF (None Seen) A 01/01/20 15:27 - EKG Interpretation EKG: Normal sinus rhythm left axis deviation left bundle branch block no change from previous pulse rate 87 no STEMI - Radiology Interpretation Chest x-ray Status: report reviewed by me Additional Comment: IMPRESSION: No radiographic evidence of acute cardiopulmonary process. CT scan - chest Status: pending Hospitalist H&P A/P - Problem (1) Sepsis Code(s): A41.9 - SEPSIS, UNSPECIFIED ORGANISM Status: Acute (2) UTI (urinary tract infection) Status: Acute (3) Severe dehydration Code(s): E86.0 - DEHYDRATION Status: Acute (4) Gastritis Code(s): K29.70 - GASTRITIS, UNSPECIFIED, WITHOUT BLEEDING Status: Chronic (5) CHF (congestive heart failure) Code(s): I50.9 - HEART FAILURE, UNSPECIFIED Status: Chronic (6) COPD (chronic obstructive pulmonary disease) Status: Chronic (7) Depression Code(s): F32.9 - MAJOR DEPRESSIVE DISORDER, SINGLE EPISODE, UNSPECIFIED Status: Chronic (8) CVA (cerebral vascular accident) Code(s): I63.9 - CEREBRAL INFARCTION, UNSPECIFIED Status: Chronic - Plan Plan: 69/F recently discharged with gastritis presents for N/V/D. Admit to medical floor, inpatient status. Expected length of stay greater than 2 midnights. Presented febrile, NL BP, HR, RR, SPO2. EKG sinus rhythm, LBBB, no change from previous. CXR no acute process. Troponin 0.043, CK-MB 2.2, BNP 502 DD 2.24 WBC 9.8, LA 2.2, UA. Consistent for UTI ALP 228 (improved), NL bilirubin, AST/ALT #Sepsis Suspected. Likely urinary source. Received 2 L NS in ED. Give half-normal saline at maintenance rate. Continue Rocephin. Blood/urine CX pending. #UTI Continue Rocephin. Urine cultures pending. #Severe dehydration Reports chronic diarrhea. Acute onset N/V this morning. Continue IV fluid resuscitation. #Gastritis Patient was recently discharged on 12/05 for same complaint. Infectious work-up unremarkable. Upon assessment, no acute abdominal signs. No changes to her stools since previous workup. We will continue to monitor. #CHF Chronic, appears stable. EKG/CXR/troponins/BNP as above. No signs of fluid volume overload. We will restart home dose of Coreg, potassium chloride. We will hold home dose of lisinopril for now. #COPD Chronic, stable. Takes no home medications. #Depression Denies SI/HI. Restart home dose of Wellbutrin. #CVA Reported episode greater than 20 years ago. No residual deficits. Lovenox for DVT prophylaxis. PPI for GI prophylaxis. Full code. Today contact is her daughter, Tri at [phone]. Discussed the case with Dr. Dowd.
[2020-01-01] MEDS ORDERED: Ondansetron ODT 4 MG TAB PO PRN (20:19)
[2020-01-01] MEDS ORDERED: Calcium Carbonate 500 MG ChewTAB PO PRN (20:19)
[2020-01-01] MEDS ORDERED: Ondansetron PF 4 MG/2 ML Vial IVP PRN (20:19)
[2020-01-01] MEDS ORDERED: Simethicone Chewable 80 MG TAB PO PRN (20:30)
[2020-01-01 20:36] LABS: Lactic Acid 1.1 mmol/L (0.5-2.2)
--- NOTE | 2020-01-01 21:24 | CT ---
CTA CHEST WITH CONTRAST: 01/01/20 Axial tomograms obtained with multiplanar reconstruction and 3D postprocessing. INDICATIONS: Weakness. Shortness of breath. Headache. FINDINGS: Pulmonary arteries show adequate opacification. No evidence of proximal pulmonary embolus to the segm ental level. Thoracic aorta shows no evidence of dissection. Atherosclerotic changes are present in the thoracic a sridevi. Mediastinum unremarkable. The lungs show no evidence of infiltrate or effusion. Cardiomegaly with mild vascular engorgement. Images through upper abdomen unremarkable. Mildly distended gallbladder is noted. Osseous structures unremarkable. IMPRESSION: 1. No evidence of pulmonary embolus. 2. No acute lung process. POS: AGW
[2020-01-01] MEDS: Sodium Chloride 0.45% 1,000 ML IV SCH (22:44)
[2020-01-01] MEDS: traZODone HCl 50 MG TAB PO PRN (22:45)
[2020-01-01] MEDS: Carvedilol 3.125 MG TAB PO SCH (22:45)
[2020-01-01] MEDS: Atorvastatin Calcium 40 MG TAB PO SCH (22:45)
[2020-01-01 23:21] VITALS: BMI 20.2
[2020-01-02 06:18] LABS: #Eosinphils 0.3 thou/uL (0.0-0.7); #Lymphocytes 0.8 thou/uL (1.20-3.40); #Monocytes 0.5 thou/uL (0.11-0.59); #Neutrophils 5.3 thou/uL (1.40-6.50); %Basophils 0.5 % (0.0-1.0); %Lymphocytes 11.5 % (21.0-51.0); %Monocytes 6.6 % (0.0-10.0); %Neutrophils 76.5 % (42.0-75.0); Hemoglobin 11.9 g/dL (12.0-16.0); Mean Corpuscular HGB CONC 32.5 g/dL (32.0-36.0); Mean Corpuscular Hemoglobin 31.2 pg (27.0-31.0); Mean Corpuscular Volume 95.8 fL (78.0-98.0); Mean Platelet Volume 9.9 fL (7.4-10.4); Platelet Count 173 thou/uL (130-400); RBC Distribution Width 15.4 % (11.5-14.5); Red Blood Cell (RBC) Count 3.81 mill/uL (4.20-5.40); White Blood Cell (WBC) Count 6.9 thou/uL (4.8-10.8)
[2020-01-02 06:31] LABS: Anion Gap 10 mmol/L (10-20); BUN (Urea Nitrogen) 10 mg/dL (9.8-20.1); Calc. Creatinine Clearance 57 mL/min (70-130); Calcium 8.4 mg/dL (7.8-10.44); Carbon Dioxide 14 mmol/L (23-31); Chloride 120 mmol/L (98-107); Estimated GFR-MDRD 74; Glucose 84 mg/dL (80-115); Sodium 141 mmol/L (136-145)
[2020-01-02 06:37] LABS: Potassium 2.7 mmol/L (3.5-5.1)
[2020-01-02] MEDS ORDERED: Potassium Chloride 20 MEQ in Premix Bag 1 BAG IVPB SCH (08:15)
[2020-01-02] MEDS: Enoxaparin Sodium 40 MG/0.4 ML SYRINGE SC SCH (08:27)
[2020-01-02] MEDS: Gemfibrozil 600 MG TAB PO SCH ×2 (08:27→16:39)
[2020-01-02] MEDS: Clopidogrel Bisulfate 75 MG TAB PO SCH (08:27)
[2020-01-02] MEDS: Carvedilol 3.125 MG TAB PO SCH ×2 (08:27→19:46)
[2020-01-02] MEDS: Bupropion 150 MG XL TAB PO SCH (08:28)
[2020-01-02] MEDS: Sodium Chloride 0.45% 1,000 ML IV SCH (08:37)
[2020-01-02] MEDS: Acetaminophen 325 MG TAB PO PRN ×2 (09:13→19:45)
[2020-01-02 12:59] LABS: SARS-CoV-2 MS2 Positive; SARS-CoV-2 N Gene Negative; SARS-CoV-2 S Gene Negative; SARS-CoV-2 by NAA Not Detected (NotDetected); SARS-CoV-2 orf1ab Negative
[2020-01-02] MEDS: cefTRIAXone\\ROCEPHIN 1 GM in Sodium Chloride 0.9% 100 ML IVPB SCH (17:25)
--- NOTE | 2020-01-02 18:22 | PDOC.HOSPP ---
- Subjective Encounter Date: 01/02/20 Encounter Time: 18:23 Subjective: Ms. Valente was seen today in follow-up of nausea and vomiting, and diarrhea. She says she has improved. She says not had any diarrhea today. She want to eat something more solid today. - Objective Vital Signs & Weight: Vital Signs (12 hours) Temp Pulse Resp BP Pulse Ox 01/02/20 08:00 96 01/02/20 07:21 97.8 F 58 L 16 157/62 H 96 Weight Admit Weight 118 lb Weight 118 lb I&O: 01/01/20 01/02/20 01/03/20 06:59 06:59 06:59 Intake Total 1230 960 Output Total 650 850 Balance 580 110 Result Diagrams: 01/02/20 05:53 01/02/20 05:53 Hospitalist ROS - Medication Medications: Active Medications Generic Name Dose Route Start Last Admin Trade Name Freq PRN Reason Stop Dose Admin Acetaminophen 650 mg 01/01/20 20:19 01/02/20 09:13 Acetaminophen 325 Mg Tab PO 650 mg Q4H PRN Administration Headache/Fever/Mild Pain (1-3) Atorvastatin Calcium 40 mg 01/01/20 21:00 01/01/20 22:45 Atorvastatin Calcium 40 Mg Tab PO 40 mg HS CAMRON Administration Bupropion HCl 150 mg 01/02/20 09:00 01/02/20 08:28 Bupropion 150 Mg Xl Tab PO 150 mg DAILY CAMRON Administration Carvedilol 3.125 mg 01/01/20 21:00 01/02/20 08:27 Carvedilol 3.125 Mg Tab PO 3.125 mg BID CAMRON Administration Clopidogrel Bisulfate 75 mg 01/02/20 09:00 01/02/20 08:27 Clopidogrel Bisulfate 75 Mg Tab PO 75 mg DAILY CAMRON Administration Enoxaparin Sodium 40 mg 01/02/20 09:00 01/02/20 08:27 Enoxaparin Sodium 40 Mg/0.4 Ml Syringe SC 40 mg 0900 CAMRON Administration Gemfibrozil 600 mg 01/02/20 07:30 01/02/20 16:39 Gemfibrozil 600 Mg Tab PO 600 mg BID-AC CAMRON Administration Ceftriaxone Sodium 1 gm/ 100 mls @ 200 mls/hr 01/02/20 18:00 01/02/20 17:25 Sodium Chloride IVPB 100 mls Q24HR CAMRON Administration Sodium Chloride 1,000 mls @ 75 mls/hr 01/01/20 20:30 01/02/20 08:37 1/2 Normal Saline IV 1,000 mls .[id number] CAMRON Administration Pantoprazole Sodium 40 mg 01/02/20 09:00 01/02/20 08:27 Pantoprazole 40 Mg Tab PO 40 mg DAILY CAMRON Administration Trazodone HCl 50 mg 01/01/20 20:30 01/01/20 22:45 Trazodone Hcl 50 Mg Tab PO 50 mg HS PRN Administration Insomnia - Exam Eye: PERRL, anicteric sclera Heart: RRR, no murmur, no gallops, no rubs, normal peripheral pulses Respiratory: CTAB, no wheezes, no rales, no ronchi, normal chest expansion, no tachypnea, normal percussion Gastrointestinal: soft, non-tender, non-distended, normal bowel sounds, no palpable masses, no hepatomegaly, no splenomegaly Extremities: no cyanosis, no edema Hosp A/P (1) Gastroenteritis Code(s): K52.9 - NONINFECTIVE GASTROENTERITIS AND COLITIS, UNSPECIFIED Status: Acute (2) Chronic diarrhea Code(s): K52.9 - NONINFECTIVE GASTROENTERITIS AND COLITIS, UNSPECIFIED Status: Acute (3) UTI (urinary tract infection) Status: Acute (4) COPD (chronic obstructive pulmonary disease) Status: Chronic (5) CVA (cerebral vascular accident) Code(s): I63.9 - CEREBRAL INFARCTION, UNSPECIFIED Status: Chronic (6) Depression Code(s): F32.9 - MAJOR DEPRESSIVE DISORDER, SINGLE EPISODE, UNSPECIFIED Status: Chronic (7) CHF (congestive heart failure) Code(s): I50.9 - HEART FAILURE, UNSPECIFIED Status: Chronic - Plan * Acute on chronic diarrhea- I suspect this time she has Gastroenteritis due to infection- this appears to be resolving- will advance her diet * Chronic diarrhea- she has had this off and on for about 6 months. She has not had the opportunity to have this evaluated. She is blind, and has limited transportation- will consult Dr. Webb, who she has seen in the past * UTI- will continue Rocephin, and await final culture results * CHF- unknown type- will watch fluid status * COPD- will add Duonebs as needed * History of CVA- will continue statin, and plavix
[2020-01-02] MEDS: Atorvastatin Calcium 40 MG TAB PO SCH (19:46)
[2020-01-02] MEDS: traZODone HCl 50 MG TAB PO PRN (19:55)
[2020-01-02] MEDS ORDERED: FLU VACC QS2020-21(65YR UP)/PF 240 MCG/0.7 ML SYRINGE IM ONE (21:00)
[2020-01-03] MEDS: Melatonin 3 MG TAB PO PRN (00:26)
[2020-01-03] MEDS: Sodium Chloride 0.45% 1,000 ML IV SCH ×2 (00:27→17:55)
[2020-01-03] MEDS ORDERED: hydrALAZINE 25 MG TAB PO PRN (07:56)
--- NOTE | 2020-01-03 09:02 | PDOC.HOSPP ---
- Subjective Encounter Date: 01/03/20 Encounter Time: 08:20 Subjective: Ms. Valente is a 69 year old female being followed for nausea, vomiting, and diarrhea. Patient was seen and examined this morning. Patient stated she did not sleep well last night. She said she got a headache lying in bed trying to sleep. She rates her headacha as an 8 out of 10. Further stated she "cant' breathe" because her nose is too "stuffy." Patient also endorsed sensation that she couldn't bend her toes. - Objective Vital Signs & Weight: Vital Signs (12 hours) Temp Pulse Resp BP Pulse Ox 01/03/20 07:27 97.9 F 58 L 18 180/71 H 97 01/03/20 04:48 97.9 F 72 16 166/79 H 97 01/03/20 00:00 97.9 F 64 16 179/69 H 97 Weight Admit Weight 118 lb Weight 118 lb I&O: 01/02/20 01/03/20 01/04/20 06:59 06:59 06:59 Intake Total 1230 2510 Output Total 650 2050 Balance 580 460 Result Diagrams: 01/02/20 05:53 01/03/20 15:14 Hospitalist ROS - Review of Systems Constitutional: denies: fever, chills ENT: reports: nose congestion Respiratory: reports: cough. denies: shortness of breath Cardiovascular: denies: chest pain, palpitations Gastrointestinal: denies: nausea, vomiting, diarrhea Neurological: denies: weakness, numbness - Medication Medications: Active Medications Generic Name Dose Route Start Last Admin Trade Name Freq PRN Reason Stop Dose Admin Acetaminophen 650 mg 01/01/20 20:19 01/02/20 19:45 Acetaminophen 325 Mg Tab PO 650 mg Q4H PRN Administration Headache/Fever/Mild Pain (1-3) Atorvastatin Calcium 40 mg 01/01/20 21:00 01/02/20 19:46 Atorvastatin Calcium 40 Mg Tab PO 40 mg HS CAMRON Administration Bupropion HCl 150 mg 01/02/20 09:00 01/02/20 08:28 Bupropion 150 Mg Xl Tab PO 150 mg DAILY CAMRON Administration Carvedilol 3.125 mg 01/01/20 21:00 01/02/20 19:46 Carvedilol 3.125 Mg Tab PO 3.125 mg BID CAMRON Administration Clopidogrel Bisulfate 75 mg 01/02/20 09:00 01/02/20 08:27 Clopidogrel Bisulfate 75 Mg Tab PO 75 mg DAILY CAMRON Administration Enoxaparin Sodium 40 mg 01/02/20 09:00 01/02/20 08:27 Enoxaparin Sodium 40 Mg/0.4 Ml Syringe SC 40 mg 0900 CAMRON Administration Gemfibrozil 600 mg 01/02/20 07:30 01/02/20 16:39 Gemfibrozil 600 Mg Tab PO 600 mg BID-AC CAMRON Administration Ceftriaxone Sodium 1 gm/ 100 mls @ 200 mls/hr 01/02/20 18:00 01/02/20 17:25 Sodium Chloride IVPB 100 mls Q24HR CAMRON Administration Sodium Chloride 1,000 mls @ 75 mls/hr 01/01/20 20:30 01/03/20 00:27 1/2 Normal Saline IV Not Given .[id number] CAMRON Melatonin 3 mg 01/02/20 23:54 01/03/20 00:26 Melatonin 3 Mg Tab PO 3 mg HS PRN Administration Insomnia Pantoprazole Sodium 40 mg 01/02/20 09:00 01/02/20 08:27 Pantoprazole 40 Mg Tab PO 40 mg DAILY CAMRON Administration Trazodone HCl 50 mg 01/01/20 20:30 01/02/20 19:55 Trazodone Hcl 50 Mg Tab PO 50 mg HS PRN Administration Insomnia - Exam General Appearance: NAD, awake alert Heart: RRR, no murmur, no gallops, no rubs Respiratory: CTAB, wheezes (in right lung) Gastrointestinal: soft, non-distended, normal bowel sounds, tender to palpation (minor tnederness win RUQ) Extremities: no edema Musculoskeletal: normal strength Psychiatric: normal affect, normal behavior Hosp A/P (1) Gastroenteritis Code(s): K52.9 - NONINFECTIVE GASTROENTERITIS AND COLITIS, UNSPECIFIED Status: Acute (2) Chronic diarrhea Code(s): K52.9 - NONINFECTIVE GASTROENTERITIS AND COLITIS, UNSPECIFIED Status: Acute (3) UTI (urinary tract infection) Status: Acute (4) COPD (chronic obstructive pulmonary disease) Status: Chronic (5) CVA (cerebral vascular accident) Code(s): I63.9 - CEREBRAL INFARCTION, UNSPECIFIED Status: Chronic (6) Depression Code(s): F32.9 - MAJOR DEPRESSIVE DISORDER, SINGLE EPISODE, UNSPECIFIED Status: Chronic (7) CHF (congestive heart failure) Code(s): I50.9 - HEART FAILURE, UNSPECIFIED Status: Chronic - Plan * Acute on chronic diarrhea- I suspect this time she has Gastroenteritis due to infection- this appears to be resolving- will advance her diet * Chronic diarrhea- Evaluation as per GI * HTN- her blood pressure continues to be elevated- will increase the dose of Amlodipine to 5 mg a day * UTI- will continue Rocephin, and await final culture results * CHF- unknown type- will watch fluid status * COPD- will add Duonebs as needed * History of CVA- will continue statin, and plavix * * Patient seen and examined and discussed with Shirin Akbar MS-3, and agree with above. Ms. Valente is feeling a little better, the diarrhea has resolved, but she notes feeling very anxious. Her exam is unchanged. Stool studies not sent- due to no diarrhea. She has been seen by GI and plan is for EGD and Colonoscopy for chronic diarrhea. Continue Rocephin for UTI. She likely can be discharged home tomorrow on an oral antibiotic for the UTI, as long as there are no worrisome findings on EGD and Colonoscopy.
[2020-01-03] MEDS: Clopidogrel Bisulfate 75 MG TAB PO SCH (09:11)
[2020-01-03] MEDS: Carvedilol 3.125 MG TAB PO SCH ×2 (09:11→20:43)
[2020-01-03] MEDS: Gemfibrozil 600 MG TAB PO SCH ×2 (09:11→15:26)
[2020-01-03] MEDS: Bupropion 150 MG XL TAB PO SCH (09:11)
[2020-01-03] MEDS: Enoxaparin Sodium 40 MG/0.4 ML SYRINGE SC SCH (09:15)
--- NOTE | 2020-01-03 12:39 | CON ---
DATE OF CONSULTATION: 01/03/2020 REQUESTING PHYSICIAN: Dr. Weaver. REASON FOR CONSULTATION: [id number] diarrhea. HISTORY OF PRESENT ILLNESS: Leilani Valente is a 69-year-old woman with a history of CHF and COPD. She was seen in the outpatient setting by Dr. Daniels for GI. She has a history significant for erosive esophagitis back in 2016. In 2018, she had a spontaneous small-bowel perforation of a jejunal ulcer and underwent emergency surgery with resection of 3.5 cm of jejunum with ulcer by Dr. Hinojosa, has recovered from this. She had a followup EGD in October [address] Daniels, which showed a hiatal hernia, resolution of esophagitis, and esophagus dilated to 46-Kosovan. She recalls having undergone colonoscopy in the distant past, but cannot recall any recent colonoscopy, and I do not see any documentation of one. At any rate, she says that she has been dealing with chronic diarrhea off and on for the past 6 to 8 months at least, some days will be better, but several days per week at least she will have 10 or more loose and urgent bowel movements per day. She has been taking a lot of Imodium as an outpatient, she usually takes 2 tablets as needed. There is never any blood with this. There is usually no abdominal discomfort associated with the diarrhea. She was briefly hospitalized a month ago with diarrhea symptoms and had stool studies, which were negative for C difficile, negative stool culture. She was admitted to the hospital 2 days ago with acute nausea and vomiting and diffuse abdominal pain, was found to have sepsis from E coli urinary tract infection. She has been treated with Rocephin over the past couple of days and that nausea and abdominal pain have completely resolved. In fact, she is not really having any diarrhea since admission either. The diarrhea is really more of a chronic issue. REVIEW OF SYSTEMS: Full review of systems including constitutional, head, eyes, ears, nose, throat, GI, , cardiovascular, respiratory, musculoskeletal, neurologic systems is negative except as noted in the HPI. PAST MEDICAL HISTORY: CHF, COPD, hypertension, hyperlipidemia, remote CVA about 20 years ago, left eye blindness, depression, back surgery, knee surgery, rotator cuff repair. ALLERGIES: NO KNOWN DRUG ALLERGIES. HOSPITAL MEDICATIONS: 1. Tylenol p.r.n. 2. Lipitor. 3. Wellbutrin. 4. Coreg. 5. Ceftriaxone 1 g IV q.24 hours. 6. Plavix 75 mg daily. 7. Lovenox 40 mg subcu daily. 8. Gemfibrozil. 9. Melatonin. 10. Protonix 40 mg daily. 11. Trazodone. FAMILY HISTORY: Noncontributory. SOCIAL HISTORY: She is a former smoker. No alcohol or drug abuse. PHYSICAL EXAMINATION: VITAL SIGNS: Temperature 97.9, pulse 58, blood pressure 180/71, 97% oxygen saturation on room air. GENERAL: Frail, but nontoxic appearing 69-year-old woman, lying in bed comfortably, in no distress. MENTAL: She is alert and fully oriented. Pleasant, conversational. SKIN: No jaundice. No rashes were palpable. EYES: She is blind in the left eye. ENT: Mucous membranes moist. No oral lesions. LYMPH: No submandibular or supraclavicular lymphadenopathy. THYROID: Nontender to palpation. HEART: Regular rate and rhythm. LUNGS: Clear to auscultation bilaterally. ABDOMEN: Flat. Bowel sounds are present. The abdomen is soft with some mild tenderness to palpation in the epigastrium, but no guarding or rebound tenderness. EXTREMITIES: No peripheral edema. VESSELS: Radial pulses 2+ bilaterally. NEUROLOGIC: Cranial nerves 2 through 12 intact bilaterally. No focal deficits. LABORATORY STUDIES: WBC 6.9, hemoglobin 11.9, platelets 173, MCV 95.8. D-dimer was 2.24. Lactic acid only 1.1. Sodium 141, potassium 2.7, BUN 10, creatinine 0.77, glucose 84, magnesium 1.4, total bilirubin 0.5, alkaline phosphatase 228, AST 12, ALT 9, albumin 3.5. COVID PCR negative. Urinalysis showed 11 to 20 wbc's, positive for bacteria, nitrites, and leukocyte esterase. Urine culture is growing out E coli. Lipase is only 10. Blood culture showed no growth to date. Recent stool studies from 12/01/2019 showed negative C difficile, negative Campylobacter, E coli, and shiga toxin. Negative stool culture. IMAGING STUDIES: CT of the chest shows no acute process. No pulmonary embolus. Chest x-ray shows no acute process. ASSESSMENT AND PLAN: 1. Chronic diarrhea. This has been going on really for 6 to 8 months. It does not appear to be directly related to her presenting urosepsis. She has not undergone any recent colonoscopy and I note stool studies were negative one month ago. Some further workup would be reasonable given the severity of her presentation and ongoing symptoms. We will go ahead and plan for diagnostic esophagogastroduodenoscopy and colonoscopy tomorrow with plan for duodenal and colon biopsies. 2. Acute nausea and vomiting, resolved. 3. Escherichia coli urinary tract infection. The patient has been treated with Rocephin. Presenting symptoms of nausea and vomiting have resolved. Thank you for the consultation. Please call anytime with questions or concerns. Job ID: [id number]
[2020-01-03] MEDS ORDERED: Amlodipine 5 MG TAB PO SCH (14:45)
[2020-01-03] MEDS ORDERED: Magnesium 2 GM/50 ML 2 GM in Premix Bag 1 BAG IVPB SCH (14:45)
[2020-01-03] MEDS ORDERED: diphenhydrAMINE 25 MG CAP PO PRN (15:42)
[2020-01-03] MEDS ORDERED: GoLYTELY 4,000 ml Bottle PO SCH (17:00)
[2020-01-03] MEDS: cefTRIAXone\\ROCEPHIN 1 GM in Sodium Chloride 0.9% 100 ML IVPB SCH (17:54)
[2020-01-03] MEDS: Atorvastatin Calcium 40 MG TAB PO SCH (20:43)
[2020-01-04] MEDS: Lorazepam 0.5 MG TAB PO PRN ×2 (00:29→21:00)
[2020-01-04] MEDS: Melatonin 3 MG TAB PO PRN ×2 (00:32→21:01)
[2020-01-04] MEDS: Sodium Chloride 0.45% 1,000 ML IV SCH ×2 (02:27→12:20)
[2020-01-04 06:50] LABS: #Eosinphils 0.3 thou/uL (0.0-0.7); #Lymphocytes 1.5 thou/uL (1.20-3.40); #Monocytes 0.4 thou/uL (0.11-0.59); #Neutrophils 4.3 thou/uL (1.40-6.50); %Basophils 0.4 % (0.0-1.0); %Eosinophils 4.4 % (0.0-10.0); %Lymphocytes 22.6 % (21.0-51.0); %Neutrophils 66.5 % (42.0-75.0); Hemoglobin 14.1 g/dL (12.0-16.0); Mean Corpuscular HGB CONC 34.1 g/dL (32.0-36.0); Mean Corpuscular Hemoglobin 31.3 pg (27.0-31.0); Mean Corpuscular Volume 91.8 fL (78.0-98.0); Mean Platelet Volume 10.3 fL (7.4-10.4); Platelet Count 195 thou/uL (130-400); Red Blood Cell (RBC) Count 4.51 mill/uL (4.20-5.40); White Blood Cell (WBC) Count 6.5 thou/uL (4.8-10.8)
[2020-01-04 07:16] LABS: Anion Gap 14 mmol/L (10-20); BUN (Urea Nitrogen) 5 mg/dL (9.8-20.1); Calc. Creatinine Clearance 67 mL/min (70-130); Calcium 8.8 mg/dL (7.8-10.44); Carbon Dioxide 23 mmol/L (23-31); Chloride 108 mmol/L (98-107); Estimated GFR-MDRD 89; Glucose 92 mg/dL (80-115); Sodium 142 mmol/L (136-145)
[2020-01-04 07:25] LABS: Potassium 2.9 mmol/L (3.5-5.1)
[2020-01-04] MEDS: Potassium Chloride 20 MEQ TAB PO SCH ×3 (08:06→21:00)
[2020-01-04] MEDS ORDERED: PROPOFOL 200 MG/20 ML VIAL ONE (10:39)
[2020-01-04] MEDS ORDERED: Lidocaine 1% PF 5 ML VIAL ONE (10:39)
--- NOTE | 2020-01-04 12:07 | OP ---
DATE OF PROCEDURE: 01/04/2020 HOSPITAL ADMISSIONS CLERK SURGEON: None. PROCEDURES: 1. Esophagogastroduodenoscopy with biopsies. 2. Colonoscopy with biopsies and snare polypectomy. INDICATIONS: 1. Chronic diarrhea. 2. Acute nausea and vomiting, resolved. MEDICATIONS: See Anesthesia record. FINDINGS: After discussion of the risks, benefits, and alternatives of the procedure, informed consent was obtained and witnessed. Pre-endoscopic cardiopulmonary examination was satisfactory. Time-out was performed before sedation was achieved. Sedation was achieved with Anesthesia assistance in the endoscopy unit. A Pentax adult upper endoscope was placed into the oropharynx and passed through the cricopharyngeus under direct visualization. The esophageal mucosa appeared normal throughout with a normal-appearing Z-line. The endoscope was advanced into the stomach. Forward and retroflexed views of the entire gastric mucosa were obtained. The gastric fundus and body appeared normal. In the gastric antrum, there was some mild erosive gastritis, characterized by multiple shallow erosions, some mild friability and erythema. Biopsies were obtained from the gastric antrum and body to rule out H pylori infection. The endoscope was passed through the pylorus and into the first and second portions of the duodenum. There is some erythema and edema in the duodenal bulb and the second portion of the duodenum appears normal. Duodenal biopsies were obtained to rule out celiac disease. The upper endoscope was completely withdrawn and the patient was repositioned. Digital rectal exam was performed, which was unremarkable. A Pentax adult colonoscope was inserted into the anus and passed forward to the cecum in the usual fashion. The cecal base was identified by the appendiceal orifice as well as the ileocecal valve. The terminal ileum was intubated and the ileal mucosa appeared normal. The colonoscope was slowly withdrawn in a gradual and circumferential manner with careful examination of the entire colonic mucosa. The quality of the prep was adequate. In the ascending colon, there was a single sessile 5-mm polyp. This was completely removed with hot snare and retrieved for pathology. The remainder of the colonic mucosa appeared normal throughout. Random biopsies were obtained from the right and left colon for histology, to rule out microscopic colitis. Retroflexion in the rectum was unremarkable. The colonoscope was completely withdrawn and the patient allowed to recover. The patient tolerated the procedure well. There were no immediate postprocedure complications. IMPRESSION: 1. Mild erosive gastritis in the antrum, biopsied to rule out Helicobacter pylori. 2. Mild duodenitis in the bulb, duodenal biopsies obtained. 3. A 5-mm ascending colon polyp, completely removed with hot snare and retrieved for pathology. 4. Otherwise, normal colonoscopy to the terminal ileum, with random biopsies of the colon obtained to rule out microscopic colitis. RECOMMENDATIONS: 1. Advance diet. 2. Continue daily pantoprazole. 3. The patient can use Imodium one to three times daily as needed for diarrhea. 4. We will follow up pathology results on an outpatient basis. 5. The patient should follow up in the GI Clinic with Dr. Daniels, her primary supervisor fur dressing. GI will sign off. Please call back anytime with questions or concerns. Job ID: [id number]
[2020-01-04] MEDS: Gemfibrozil 600 MG TAB PO SCH ×2 (12:21→17:27)
[2020-01-04] MEDS: Carvedilol 3.125 MG TAB PO SCH ×2 (12:21→21:00)
[2020-01-04] MEDS: Clopidogrel Bisulfate 75 MG TAB PO SCH (12:21)
[2020-01-04] MEDS: Enoxaparin Sodium 40 MG/0.4 ML SYRINGE SC SCH (12:22)
[2020-01-04] MEDS: Amlodipine 5 MG TAB PO SCH (12:22)
[2020-01-04] MEDS: Bupropion 150 MG XL TAB PO SCH (12:25)
--- NOTE | 2020-01-04 14:28 | PDOC.HOSPP ---
- Subjective Encounter Date: 01/04/20 Encounter Time: 08:45 Subjective: is npo for procedure today says her night was rough with drinking golytely no nausea - Objective Vital Signs & Weight: Vital Signs (12 hours) Temp Pulse Resp BP Pulse Ox 01/04/20 12:22 75 01/04/20 07:32 98 F 75 19 137/78 97 Weight Admit Weight 118 lb Weight 118 lb I&O: 01/03/20 01/04/20 01/05/20 06:59 06:59 05:59 Intake Total 2510 4000 Output Total 0 5200 Balance 460 -1200 Result Diagrams: 01/04/20 06:12 01/04/20 06:12 Hospitalist ROS - Medication Medications: Active Medications Generic Name Dose Route Start Last Admin Trade Name Freq PRN Reason Stop Dose Admin Acetaminophen 650 mg 01/01/20 20:19 01/02/20 19:45 Acetaminophen 325 Mg Tab PO 650 mg Q4H PRN Administration Headache/Fever/Mild Pain (1-3) Amlodipine Besylate 5 mg 01/04/20 09:00 01/04/20 12:22 Amlodipine 5 Mg Tab PO 5 mg DAILY [facility] Administration Atorvastatin Calcium 40 mg 01/01/20 21:00 01/03/20 20:43 Atorvastatin Calcium 40 Mg Tab PO 40 mg HS [facility] Administration Bupropion HCl 150 mg 01/02/20 09:00 01/04/20 12:25 Bupropion 150 Mg Xl Tab PO 150 mg DAILY [facility] Administration Carvedilol 3.125 mg 01/01/20 21:00 01/04/20 12:21 Carvedilol 3.125 Mg Tab PO 3.125 mg BID [facility] Administration Clopidogrel Bisulfate 75 mg 01/02/20 09:00 01/04/20 12:21 Clopidogrel Bisulfate 75 Mg Tab PO 75 mg DAILY [facility] Administration Enoxaparin Sodium 40 mg 01/02/20 09:00 01/04/20 12:22 Enoxaparin Sodium 40 Mg/0.4 Ml Syringe SC 40 mg 0900 [facility] Administration Gemfibrozil 600 mg 01/02/20 07:30 01/04/20 12:21 Gemfibrozil 600 Mg Tab PO 600 mg BID-AC [facility] Administration Hydralazine HCl 25 mg 01/03/20 07:56 01/03/20 15:21 Hydralazine 25 Mg Tab PO 25 mg TID PRN Administration SBP Greater Than 170 Ceftriaxone Sodium 1 gm/ 100 mls @ 200 mls/hr 01/02/20 18:00 01/03/20 17:54 Sodium Chloride IVPB 100 mls Q24HR [facility] Administration Sodium Chloride 1,000 mls @ 75 mls/hr 01/01/20 20:30 01/04/20 12:20 1/2 Normal Saline IV 1,000 mls .[id number] [facility] Administration Lorazepam 0.25 mg 01/03/20 15:41 01/04/20 00:29 Lorazepam 0.5 Mg Tab PO 0.25 mg Q6H PRN Administration Anxiety/Agitation Melatonin 3 mg 01/02/20 23:54 01/04/20 00:32 Melatonin 3 Mg Tab PO 3 mg HS PRN Administration Insomnia Pantoprazole Sodium 40 mg 01/02/20 09:00 01/04/20 12:21 Pantoprazole 40 Mg Tab PO 40 mg DAILY [facility] Administration Potassium Chloride 40 meq 01/04/20 07:30 01/04/20 12:25 Potassium Chloride 20 Meq Tab PO 01/05/20 13:31 40 meq Q6H [facility] Administration Trazodone HCl 50 mg 01/01/20 20:30 01/02/20 19:55 Trazodone Hcl 50 Mg Tab PO 50 mg HS PRN Administration Insomnia - Exam General Appearance: awake alert Eye: PERRL, anicteric sclera ENT: no oropharyngeal lesions, moist mucosa Neck: supple, no JVD Heart: RRR, no murmur Respiratory: no wheezes, no rales Gastrointestinal: soft, non-tender, non-distended, normal bowel sounds Extremities: no cyanosis, no edema Neurological: cranial nerve grossly intact, no focal deficits Psychiatric: A&O x 3 Hosp A/P (1) Chronic diarrhea Code(s): K52.9 - NONINFECTIVE GASTROENTERITIS AND COLITIS, UNSPECIFIED Status: Resolved (2) Severe dehydration Code(s): E86.0 - DEHYDRATION Status: Resolved (3) UTI (urinary tract infection) Status: Acute Qualifiers: Urinary tract infection type: acute cystitis Hematuria presence: without hematuria Qualified Code(s): N30.00 - Acute cystitis without hematuria (4) CHF (congestive heart failure) Code(s): I50.9 - HEART FAILURE, UNSPECIFIED Status: Chronic Qualifiers: Heart failure type: diastolic Heart failure chronicity: chronic Qualified Code(s): I50.32 - Chronic diastolic (congestive) heart failure (5) COPD (chronic obstructive pulmonary disease) Status: Chronic Qualifiers: COPD type: chronic bronchitis (6) CVA (cerebral vascular accident) Code(s): I63.9 - CEREBRAL INFARCTION, UNSPECIFIED Status: Chronic Qualifiers: CVA mechanism: unspecified Qualified Code(s): I63.9 - Cerebral infarction, unspecified (7) Depression Code(s): F32.9 - MAJOR DEPRESSIVE DISORDER, SINGLE EPISODE, UNSPECIFIED Status: Chronic Qualifiers: Depression Type: major depressive disorder Active/Remission status: in full remission (8) Gastritis Code(s): K29.70 - GASTRITIS, UNSPECIFIED, WITHOUT BLEEDING Status: Chronic Qualifiers: Gastritis type: unspecified gastritis Chronicity: chronic Gastritis bleeding: without bleeding Qualified Code(s): K29.50 - Unspecified chronic gastritis without bleeding (9) Hypertension Code(s): I10 - ESSENTIAL (PRIMARY) HYPERTENSION Status: Chronic Qualifiers: Hypertension type: essential hypertension Qualified Code(s): I10 - Essential (primary) hypertension (10) Left bundle branch block (LBBB) Code(s): I44.7 - LEFT BUNDLE-BRANCH BLOCK, UNSPECIFIED Status: Chronic - Plan had egd/colonoscopy this am, results noted biopsies have been obtained to r/o microscopic colitis/h.pylori etc correct potassium oral diet to ambulate as tolerated with PT dc plan in am urine cs are growing e.coli sensitive to all antibiotics switch ceftriaxone to cipro continue norvasc, plavix, liptior, coreg, lopid, wellbutrin and protonix hemostable
[2020-01-04] MEDS: Acetaminophen 325 MG TAB PO PRN (15:12)
[2020-01-04] MEDS: Ciprofloxacin 500 MG TAB PO SCH (21:00)
[2020-01-04] MEDS: Atorvastatin Calcium 40 MG TAB PO SCH (21:00)
[2020-01-05] MEDS: Potassium Chloride 20 MEQ TAB PO SCH ×2 (01:19→08:58)
[2020-01-05] MEDS: Ciprofloxacin 500 MG TAB PO SCH ×2 (05:39→19:52)
[2020-01-05] MEDS: Gemfibrozil 600 MG TAB PO SCH ×2 (05:46→17:44)
[2020-01-05] MEDS: Acetaminophen 325 MG TAB PO PRN (05:47)
[2020-01-05 08:27] LABS: Anion Gap 12 mmol/L (10-20); BUN (Urea Nitrogen) 8 mg/dL (9.8-20.1); Calc. Creatinine Clearance 60 mL/min (70-130); Calcium 8.8 mg/dL (7.8-10.44); Carbon Dioxide 22 mmol/L (23-31); Chloride 111 mmol/L (98-107); Estimated GFR-MDRD 78; Glucose 92 mg/dL (80-115); Potassium 5.6 mmol/L (3.5-5.1); Sodium 139 mmol/L (136-145)
[2020-01-05] MEDS: Carvedilol 3.125 MG TAB PO SCH ×2 (08:59→19:52)
[2020-01-05] MEDS: Amlodipine 5 MG TAB PO SCH (08:59)
[2020-01-05] MEDS: Bupropion 150 MG XL TAB PO SCH (08:59)
[2020-01-05] MEDS: Clopidogrel Bisulfate 75 MG TAB PO SCH (09:00)
[2020-01-05] MEDS: Enoxaparin Sodium 40 MG/0.4 ML SYRINGE SC SCH (09:00)
--- NOTE | 2020-01-05 12:31 | PDOC.HOSPP ---
- Subjective Encounter Date: 01/05/20 Encounter Time: 08:25 Subjective: c/o band like abd pain in upper quadrants, no nausea is eating well and finishing her plate says she is ambulating in room - Objective Vital Signs & Weight: Vital Signs (12 hours) Temp Pulse Resp BP BP BP Pulse Ox 01/05/20 08:59 68 168/77 H 01/05/20 07:47 98.0 F 68 15 168/77 H 95 01/05/20 03:15 156/68 H Weight Admit Weight 118 lb Weight 118 lb I&O: 01/04/20 01/05/20 01/06/20 07:59 06:59 06:59 Intake Total Output Total Balance Result Diagrams: 01/04/20 06:12 01/05/20 07:34 Hospitalist ROS - Medication Medications: Active Medications Generic Name Dose Route Start Last Admin Trade Name Freq PRN Reason Stop Dose Admin Acetaminophen 650 mg 01/01/20 20:19 01/05/20 05:47 Acetaminophen 325 Mg Tab PO 650 mg Q4H PRN Administration Headache/Fever/Mild Pain (1-3) Amlodipine Besylate 5 mg 01/04/20 09:00 01/05/20 08:59 Amlodipine 5 Mg Tab PO 5 mg DAILY [facility] Administration Atorvastatin Calcium 40 mg 01/01/20 21:00 01/04/20 21:00 Atorvastatin Calcium 40 Mg Tab PO 40 mg HS [facility] Administration Bupropion HCl 150 mg 01/02/20 09:00 01/05/20 08:59 Bupropion 150 Mg Xl Tab PO 150 mg DAILY [facility] Administration Carvedilol 3.125 mg 01/01/20 21:00 01/05/20 08:59 Carvedilol 3.125 Mg Tab PO 3.125 mg BID [facility] Administration Ciprofloxacin 500 mg 01/04/20 20:00 01/05/20 05:39 Ciprofloxacin 500 Mg Tab PO 500 mg 599,1999 [facility] Administration Clopidogrel Bisulfate 75 mg 01/02/20 09:00 01/05/20 09:00 Clopidogrel Bisulfate 75 Mg Tab PO 75 mg DAILY [facility] Administration Enoxaparin Sodium 40 mg 01/02/20 09:00 01/05/20 09:00 Enoxaparin Sodium 40 Mg/0.4 Ml Syringe SC 40 mg 09 [facility] Administration Gemfibrozil 600 mg 01/02/20 07:30 01/05/20 05:46 Gemfibrozil 600 Mg Tab PO 600 mg BID-AC [facility] Administration Hydralazine HCl 25 mg 01/03/20 07:56 01/03/20 15:21 Hydralazine 25 Mg Tab PO 25 mg TID PRN Administration SBP Greater Than 170 Lorazepam 0.25 mg 01/03/20 15:41 01/04/20 21:00 Lorazepam 0.5 Mg Tab PO 0.25 mg Q6H PRN Administration Anxiety/Agitation Melatonin 3 mg 01/02/20 23:54 01/04/20 21:01 Melatonin 3 Mg Tab PO 3 mg HS PRN Administration Insomnia Pantoprazole Sodium 40 mg 01/02/20 09:00 01/05/20 08:59 Pantoprazole 40 Mg Tab PO 40 mg DAILY [facility] Administration Simethicone 80 mg 01/01/20 20:30 01/05/20 11:25 Simethicone Chewable 80 Mg Tab PO 80 mg TIDPRN PRN Administration Gas Pain Trazodone HCl 50 mg 01/01/20 20:30 01/02/20 19:55 Trazodone Hcl 50 Mg Tab PO 50 mg HS PRN Administration Insomnia - Exam General Appearance: awake alert Eye: PERRL, anicteric sclera ENT: no oropharyngeal lesions, moist mucosa Neck: supple, no JVD Heart: RRR, no murmur Respiratory: no wheezes, no rales Gastrointestinal: soft, non-distended, normal bowel sounds, no guarding, no rigidity Extremities: no cyanosis, no edema Neurological: cranial nerve grossly intact, no focal deficits Psychiatric: A&O x 3 Hosp A/P (1) Chronic diarrhea Code(s): K52.9 - NONINFECTIVE GASTROENTERITIS AND COLITIS, UNSPECIFIED Status: Resolved (2) Severe dehydration Code(s): E86.0 - DEHYDRATION Status: Resolved (3) UTI (urinary tract infection) Status: Acute Qualifiers: Urinary tract infection type: acute cystitis Hematuria presence: without hematuria Qualified Code(s): N30.00 - Acute cystitis without hematuria (4) CHF (congestive heart failure) Code(s): I50.9 - HEART FAILURE, UNSPECIFIED Status: Chronic Qualifiers: Heart failure type: diastolic Heart failure chronicity: chronic Qualified Code(s): I50.32 - Chronic diastolic (congestive) heart failure (5) COPD (chronic obstructive pulmonary disease) Status: Chronic Qualifiers: COPD type: chronic bronchitis (6) CVA (cerebral vascular accident) Code(s): I63.9 - CEREBRAL INFARCTION, UNSPECIFIED Status: Chronic Qualifiers: CVA mechanism: unspecified Qualified Code(s): I63.9 - Cerebral infarction, unspecified (7) Depression Code(s): F32.9 - MAJOR DEPRESSIVE DISORDER, SINGLE EPISODE, UNSPECIFIED Status: Chronic Qualifiers: Depression Type: major depressive disorder Active/Remission status: in full remission (8) Gastritis Code(s): K29.70 - GASTRITIS, UNSPECIFIED, WITHOUT BLEEDING Status: Chronic Qualifiers: Gastritis type: unspecified gastritis Chronicity: chronic Gastritis bleeding: without bleeding Qualified Code(s): K29.50 - Unspecified chronic gastritis without bleeding (9) Hypertension Code(s): I10 - ESSENTIAL (PRIMARY) HYPERTENSION Status: Chronic Qualifiers: Hypertension type: essential hypertension Qualified Code(s): I10 - Essential (primary) hypertension (10) Left bundle branch block (LBBB) Code(s): I44.7 - LEFT BUNDLE-BRANCH BLOCK, UNSPECIFIED Status: Chronic - Plan had egd/colonoscopy 01/03, results noted biopsies have been obtained to r/o microscopic colitis/h.pylori etc, outpt f/u with will give morphine/bentyl to see her abd pain resolves tolerating oral diet well. to ambulate as tolerated with PT dc plan in am urine cs are growing e.coli sensitive to all antibiotics, is on cipro continue norvasc, plavix, liptior, coreg, lopid, wellbutrin and protonix hemostable
[2020-01-05] MEDS: Dicyclomine 20 MG TAB PO PRN ×2 (12:53→17:40)
[2020-01-05] MEDS: Morphine 2 MG/ML VIAL SLOW IVP PRN ×3 (13:50→23:53)
[2020-01-05] MEDS: Atorvastatin Calcium 40 MG TAB PO SCH (19:52)
[2020-01-05] MEDS: traZODone HCl 50 MG TAB PO PRN (19:52)
[2020-01-06] MEDS: Ciprofloxacin 500 MG TAB PO SCH ×2 (05:22→21:19)
[2020-01-06 06:23] LABS: Anion Gap 14 mmol/L (10-20); BUN (Urea Nitrogen) 10 mg/dL (9.8-20.1); Calc. Creatinine Clearance 55 mL/min (70-130); Calcium 9.7 mg/dL (7.8-10.44); Carbon Dioxide 22 mmol/L (23-31); Chloride 103 mmol/L (98-107); Estimated GFR-MDRD 71; Glucose 102 mg/dL (80-115); Potassium 4.5 mmol/L (3.5-5.1); Sodium 134 mmol/L (136-145)
[2020-01-06] MEDS: Gemfibrozil 600 MG TAB PO SCH ×2 (08:15→15:22)
[2020-01-06] MEDS: Clopidogrel Bisulfate 75 MG TAB PO SCH (08:15)
[2020-01-06] MEDS: Amlodipine 5 MG TAB PO SCH (08:15)
[2020-01-06] MEDS: Carvedilol 3.125 MG TAB PO SCH ×2 (08:15→21:20)
[2020-01-06] MEDS: Enoxaparin Sodium 40 MG/0.4 ML SYRINGE SC SCH (08:16)
[2020-01-06] MEDS: Morphine 2 MG/ML VIAL SLOW IVP PRN (08:16)
[2020-01-06 09:36] LABS: Magnesium 1.6 mg/dL (1.6-2.6); Phosphorus 4.3 mg/dL (2.3-4.7)
[2020-01-06] MEDS: Bupropion 150 MG XL TAB PO SCH (09:45)
[2020-01-06] MEDS ORDERED: Magnesium 2 GM/50 ML 2 GM in Premix Bag 1 BAG IVPB SCH (10:00)
[2020-01-06] MEDS: Simethicone Chewable 80 MG TAB PO SCH ×3 (11:34→21:19)
[2020-01-06] MEDS: traMADol HCl 50 MG TAB PO PRN ×2 (13:01→21:26)
--- NOTE | 2020-01-06 13:57 | RAD ---
KUB AND UPRIGHT PA CHEST: Date: 01/06/2020 HISTORY: Abdominal pain. Recent colonoscopy. FINDINGS: The bowel gas pattern appears nonobstructive. No free air is demonstrated. No renal calculi seen. Arthritic changes of the spine and atherosclerosis. The heart size is enlarged. There are atherosclerotic changes of the aorta. There is linear scarring in the lung bases. IMPRESSION: No acute changes. POS: ADOLFO
--- NOTE | 2020-01-06 14:41 | PDOC.HOSPP ---
- Subjective Encounter Date: 01/06/20 Encounter Time: 10:00 Subjective: Patient seen and examined for abdominal pain with nausea vomiting and diarrhea. Patient also has UTI. She has intermittent crampy abdominal pain mainly in the upper quadrants that started after the colonoscopy. Denies any nausea or vomiting. No bowel movements after colonoscopy. She was unable to sleep overnight due to abdominal pain. She received morphine this morning that helped with the pain. - Objective Vital Signs & Weight: Vital Signs (12 hours) Temp Pulse Resp BP BP Pulse Ox 01/06/20 09:28 97.9 F 85 18 161/79 H 97 01/06/20 08:15 85 161/79 H Weight Admit Weight 118 lb Weight 118 lb I&O: 01/05/20 01/06/20 01/07/20 06:59 06:59 06:59 Intake Total 1800 Output Total 2150 Balance -350 Result Diagrams: 01/04/20 06:12 01/06/20 05:28 Hospitalist ROS - Review of Systems Respiratory: denies: cough, dry, shortness of breath, hemoptysis, SOB with excertion, pleuritic pain, sputum, wheezing, other Cardiovascular: denies: chest pain, palpitations, orthopnea, paroxysmal noc. dyspnea, edema, light headedness, other - Medication Medications: Active Medications Generic Name Dose Route Start Last Admin Trade Name Freq PRN Reason Stop Dose Admin Acetaminophen 650 mg 01/01/20 20:19 01/05/20 05:47 Acetaminophen 325 Mg Tab PO 650 mg Q4H PRN Administration Headache/Fever/Mild Pain (1-3) Amlodipine Besylate 5 mg 01/04/20 09:00 01/06/20 08:15 Amlodipine 5 Mg Tab PO 5 mg DAILY [facility] Administration Atorvastatin Calcium 40 mg 01/01/20 21:00 01/05/20 19:52 Atorvastatin Calcium 40 Mg Tab PO 40 mg HS [facility] Administration Bupropion HCl 150 mg 01/02/20 09:00 01/06/20 09:45 Bupropion 150 Mg Xl Tab PO 150 mg DAILY [facility] Administration Carvedilol 3.125 mg 01/01/20 21:00 01/06/20 08:15 Carvedilol 3.125 Mg Tab PO 3.125 mg BID [facility] Administration Ciprofloxacin 500 mg 01/04/20 20:00 01/06/20 05:22 Ciprofloxacin 500 Mg Tab PO 500 mg 0600,2000 [facility] Administration Clopidogrel Bisulfate 75 mg 01/02/20 09:00 01/06/20 08:15 Clopidogrel Bisulfate 75 Mg Tab PO 75 mg DAILY [facility] Administration Dicyclomine HCl 20 mg 01/05/20 13:00 01/05/20 12:53 Dicyclomine 20 Mg Tab PO 20 mg QID PRN Administration abdominal pain Enoxaparin Sodium 40 mg 01/02/20 09:00 01/06/20 08:16 Enoxaparin Sodium 40 Mg/0.4 Ml Syringe SC Not Given 899 [facility] Gemfibrozil 600 mg 01/02/20 07:30 01/06/20 08:15 Gemfibrozil 600 Mg Tab PO 600 mg BID-AC [facility] Administration Hydralazine HCl 25 mg 01/03/20 07:56 01/03/20 15:21 Hydralazine 25 Mg Tab PO 25 mg TID PRN Administration SBP Greater Than 170 Lorazepam 0.25 mg 01/03/20 15:41 01/04/20 21:00 Lorazepam 0.5 Mg Tab PO 0.25 mg Q6H PRN Administration Anxiety/Agitation Melatonin 3 mg 01/02/20 23:54 01/04/20 21:01 Melatonin 3 Mg Tab PO 3 mg HS PRN Administration Insomnia Morphine Sulfate 2 mg 01/05/20 10:43 01/06/20 08:16 Morphine 2 Mg/Ml Vial SLOW IVP 2 mg Q4H PRN Administration Severe Pain (7-10) Ondansetron HCl 4 mg 01/01/20 20:19 01/06/20 13:01 Ondansetron Pf 4 Mg/2 Ml Vial IVP 4 mg Q6H PRN Administration Nausea/Vomiting Pantoprazole Sodium 40 mg 01/02/20 09:00 01/06/20 08:15 Pantoprazole 40 Mg Tab PO 40 mg DAILY [facility] Administration Simethicone 80 mg 01/01/20 20:30 01/05/20 11:25 Simethicone Chewable 80 Mg Tab PO 80 mg TIDPRN PRN Administration Gas Pain Simethicone 80 mg 01/06/20 13:00 01/06/20 11:34 [facility]icone Chewable 80 Mg [facility] Tramad[facility] HCl 50 mg 01/06/20 09:46 01/06/20 13:01 Tramadol Hcl 50 Mg Tab PO 50 mg Q6H PRN Administration Moderate Pain (4-6) Trazodone HCl 50 mg 01/01/20 20:30 01/05/20 19:52 Trazodone Hcl 50 Mg Tab PO 50 mg HS PRN Administration Insomnia - Exam General Appearance: NAD Neck: supple Heart: RRR, no gallops Respiratory: no wheezes, no ronchi Gastrointestinal: soft, no guarding, no rigidity, tender to palpation (Generalized) Neurological: no new deficit Hosp A/P - Plan DVT proph w/SCDs Sepsis due to E. coli UTI Nausea/vomiting/diarrhea with dehydration Erosive gastritis/duodenitis Colonic polyp Hypomagnesemia Hypertension Hyperlipidemia Anxiety Plan: We will get acute abdominal series due to worsening abdominal discomfort. The pain partially improved with IV morphine this morning. Continue PPIs. Continue ciprofloxacin for UTI. Discharge later today if her pain improves/KUB negative. Add tramadol as needed for pain. Continue other medications as above.
[2020-01-06] MEDS: Dicyclomine 20 MG TAB PO PRN (15:22)
[2020-01-06] MEDS: Acetaminophen 325 MG TAB PO PRN (17:41)
[2020-01-06] MEDS ORDERED: Saccharomyces boulardii 250 MG CAP PO SCH (21:00)
[2020-01-06] MEDS: Atorvastatin Calcium 40 MG TAB PO SCH (21:19)
[2020-01-07] MEDS: Dicyclomine 20 MG TAB PO PRN ×2 (02:45→15:41)
[2020-01-07] MEDS: Ciprofloxacin 500 MG TAB PO SCH (05:27)
[2020-01-07] MEDS: traMADol HCl 50 MG TAB PO PRN ×2 (05:28→11:56)
[2020-01-07] MEDS: Gemfibrozil 600 MG TAB PO SCH ×2 (08:07→15:41)
[2020-01-07] MEDS: Simethicone Chewable 80 MG TAB PO SCH ×2 (08:07→11:56)
[2020-01-07] MEDS: Carvedilol 3.125 MG TAB PO SCH ×2 (08:08→08:57)
[2020-01-07] MEDS: Bupropion 150 MG XL TAB PO SCH (08:08)
[2020-01-07] MEDS: Clopidogrel Bisulfate 75 MG TAB PO SCH (08:08)
[2020-01-07] MEDS: Acetaminophen 325 MG TAB PO PRN (08:10)
[2020-01-07] MEDS: Amlodipine 5 MG TAB PO SCH ×2 (08:10→08:57)
[2020-01-07] MEDS ORDERED: FLU VACC QS2020-21(65YR UP)/PF 240 MCG/0.7 ML SYRINGE IM ONE (09:00)
[2020-01-07 15:28] VITALS: BP 146/62; TEMP 97.9
--- NOTE | 2020-01-08 16:03 | DIS ---
DATE OF ADMISSION: 01/01/2020 DATE OF DISCHARGE: 01/07/2020 DISCHARGE DISPOSITION: Home. PRIMARY DISCHARGE DIAGNOSES: 1. Abdominal pain, resolved. 2. Urinary tract infection, severe dehydration and sepsis, resolved. 3. History of congestive heart failure. 4. History of chronic obstructive pulmonary disease. 5. History of cerebrovascular accident, depression, gastritis, hypertension, and chronic left bundle-branch block. PROCEDURES DONE DURING HOSPITALIZATION: Urine culture grew E coli, sensitive to all antibiotics. Blood cultures were negative. CT angio chest done on the day of admission showed no evidence of pulmonary embolus. Upper endoscopy and colonoscopy done on 01/04/[address] Mario Dickinson showed mild erosive gastritis in the antrum, which was biopsied. Mild duodenitis in the bulb, which was biopsied. A 5 cm ascending colon polyp was completely removed with hot snare. Otherwise, colonoscopy was normal. Random biopsies were obtained to rule out microscopic colitis. Histopathology of the biopsies from endoscopy showed mild focal villous shortening. No H pylori organisms were identified. There was benign colonic mucosa with mildly increased intraepithelial lymphocytes, a tubular adenoma was noted on the large intestine polyp. No high-grade dysplasia or malignancy was seen. Blood cultures x2, no growth. H and H 14 and 41, platelet count 195, and white count of 6.5. Discharge BUN and creatinine are 10 and 0.8. COVID-19 PCR was not detected on 01/01/2020. DISCHARGE PLAN: Patient is to follow up with Dr. Daniels in 1 to 2 weeks. She needs to follow up with her primary care physician in 1 week. DISCHARGE MEDICATIONS: 1. Bentyl 20 mg p.o. 4 times daily p.r.n. 2. Atorvastatin 40 mg p.o. at bedtime. 3. Carvedilol 3.125 mg p.o. twice daily. 4. Plavix 75 mg p.o. daily. 5. Gemfibrozil 600 mg twice daily. 6. Lisinopril 10 mg daily. 7. Protonix 40 mg daily. 8. Trazodone 50 mg p.o. at bedtime p.r.n. 9. Wellbutrin extended release 150 mg daily. 10. MiraLAX 17 g daily p.r.n. ALLERGIES: NO KNOWN DRUG ALLERGIES. BRIEF COURSE DURING HOSPITALIZATION: Patient initially came to ER on the 31 of December with complaints of nausea, vomiting, and diarrhea. Patient has had stool studies done which were all negative. She has had abdominal pain in both lower quadrants. Gastroenterology consultation with Dr. Mario Dickinson was requested. She has had both upper and lower endoscopies done which have not revealed any significant abnormality. Patient's abdominal pain persisted and acute abdominal series x-rays were obtained which were negative. Her diarrhea completely resolved. She has known history of chronic diarrhea and has been seeing Dr. Daniels in the outpatient setting. She is advised to follow up with Dr. Daniels in 1 to 2 weeks. She also needs to see a primary care physician in [place], Dr. Alok Espino, in 1 week. Ms. Valente is tolerating oral solid diet and is ambulating well prior to discharge. Please note, I have seen and examined the patient on the day of discharge. Job ID: [id number]
--- NOTE | 2020-01-11 16:00 | EKG ---
Test Reason : Blood Pressure : / mmHG Vent. Rate : 087 BPM Atrial Rate : 087 BPM P-R Int : 196 ms QRS Dur : 160 ms QT Int : 408 ms P-R-T Axes : 059 -47 117 degrees QTc Int : 490 ms Normal sinus rhythm Left axis deviation Left bundle branch block Abnormal ECG No change from 11/24/2019 Confirmed by OBED FRANCO, YAJAIRA ([id number]), editor & co founder RENEE HARRINGTON ([id number]) on 01/11/2020 4:00:10 PM Referred By: Confirmed By:YAJAIRA CLAY MD
== END 2020-01-07 17:46 | disposition home health service (06) | DRG 872 ==
LOC: ERS 13:40 → T4-A 19:37
PROVIDERS: ADMIT Internal Medicine; ATTEND Internal Medicine
PROC: 0DB78ZX Excision of Stomach, Pylorus, Via Natural or Artificial Opening Endoscopic, Diagnostic (ICD-10-PCS; principal; 2020-01-04)
PROC: 0DBK8ZX Excision of Ascending Colon, Via Natural or Artificial Opening Endoscopic, Diagnostic (ICD-10-PCS; 2020-01-04)
PROC: 0DBB8ZX Excision of Ileum, Via Natural or Artificial Opening Endoscopic, Diagnostic (ICD-10-PCS; 2020-01-04)
DX: A41.9 Sepsis, unspecified organism (principal); N39.0 Urinary tract infection, site not specified; E87.2 Acidosis; I50.32 Chronic diastolic (congestive) heart failure; E86.0 Dehydration; E78.5 Hyperlipidemia, unspecified; B96.20 Unspecified Escherichia coli [E. coli] as the cause of diseases classified elsewhere; F32.9 Major depressive disorder, single episode, unspecified; F41.9 Anxiety disorder, unspecified; E83.42 Hypomagnesemia; K63.5 Polyp of colon; I11.0 Hypertensive heart disease with heart failure; K52.9 Noninfective gastroenteritis and colitis, unspecified; I44.7 Left bundle-branch block, unspecified; Z20.828 Contact with and (suspected) exposure to other viral communicable diseases; K29.70 Gastritis, unspecified, without bleeding; J44.9 Chronic obstructive pulmonary disease, unspecified; Z87.891 Personal history of nicotine dependence; Z79.899 Other long term (current) drug therapy; Z86.73 Personal history of transient ischemic attack (TIA), and cerebral infarction without residual deficits
CPT/HCPCS: 36415; 71045; 71275; 74022; 80048; 80053; 81003; 81015; 82010; 82330; 82550; 82553; 82803; 83605; 83690; 83735; 83880; 84100; 84132; 84484; 85025; 85379; 87040; 87077; 87086; 87186; 87635; 88305; 88312; 90471; 90662; 93005; 99284; G0008; J0696; J1650; J2060; J2270; J2405; J2704; J3370; J3475; J3480; J3490; Q9967; U0003

== ENCOUNTER 2020-01-10 08:51 | Emergency (ER) | payer MEDICARE, MEDICAID ==
[2020-01-10] MEDS ORDERED: Ondansetron PF 4 MG/2 ML Vial ONE (09:38)
[2020-01-10 10:12] LABS: #Eosinphils 0.3 thou/uL (0.0-0.7); #Lymphocytes 1.3 thou/uL (1.20-3.40); #Monocytes 0.6 thou/uL (0.11-0.59); #Neutrophils 9.4 thou/uL (1.40-6.50); %Basophils 0.3 % (0.0-1.0); %Eosinophils 2.3 % (0.0-10.0); %Lymphocytes 10.9 % (21.0-51.0); %Neutrophils 81.5 % (42.0-75.0); Hemoglobin 14.9 g/dL (12.0-16.0); Mean Corpuscular HGB CONC 32.2 g/dL (32.0-36.0); Mean Corpuscular Hemoglobin 31.1 pg (27.0-31.0); Mean Corpuscular Volume 96.5 fL (78.0-98.0); Platelet Count 309 thou/uL (130-400); RBC Distribution Width 14.5 % (11.5-14.5); Red Blood Cell (RBC) Count 4.79 mill/uL (4.20-5.40); White Blood Cell (WBC) Count 11.5 thou/uL (4.8-10.8)
[2020-01-10 10:37] LABS: ALT (SGPT) 10 U/L (8-55); AST (SGOT) 16 U/L (5-34); Albumin 4.3 g/dL (3.4-4.8); Alkaline Phosphatase 307 U/L (40-110); Anion Gap 17 mmol/L (10-20); BUN (Urea Nitrogen) 18 mg/dL (9.8-20.1); Bilirubin, Total 0.4 mg/dL (0.2-1.2); Calc. Creatinine Clearance 0 mL/min (70-130); Calcium 10.3 mg/dL (7.8-10.44); Carbon Dioxide 18 mmol/L (23-31); Chloride 104 mmol/L (98-107); Estimated GFR-MDRD 38; Glucose 120 mg/dL (80-115); Protein, Total 9.3 g/dL (6.0-8.3); Sodium 136 mmol/L (136-145)
[2020-01-10] MEDS ORDERED: Potassium Chloride 20 MEQ TAB ONE (10:59)
[2020-01-10] MEDS ORDERED: Aspirin Chewable 81 MG TAB ONE (10:59)
[2020-01-10 11:45] LABS: Bilirubin Negative (Negative); Blood, Urine Negative (Negative); Glucose, Urine (Dipstick) Negative (Negative); Ketone, Urine Negative (Negative); Leukocyte Negative (Negative); Nitrite Negative (Negative); Protein, Urine (Dipstick) 100 mg/dL (Neg-Trace); Urobilinogen 0.2 mg/dL (Less than 2); pH, Urine 5.5 (5.0-9.0)
[2020-01-10 11:59] LABS: Clarity Clear (Clear); RBC/HPF None Seen HPF (0-3); Specific Gravity, Urine 1.028 (1.002-1.036); WBC/HPF None Seen HPF (0-3)
[2020-01-10 12:00] LABS: Bacteria/HPF Rare-Few HPF (None Seen)
== END 2020-01-10 15:25 | disposition home or self-care (01) ==
LOC: ERS 08:51
DX: R19.7 Diarrhea, unspecified (principal); I11.0 Hypertensive heart disease with heart failure; I50.9 Heart failure, unspecified; E78.5 Hyperlipidemia, unspecified; J44.9 Chronic obstructive pulmonary disease, unspecified; F32.9 Major depressive disorder, single episode, unspecified; Z87.891 Personal history of nicotine dependence; Z79.899 Other long term (current) drug therapy
CPT/HCPCS: 36415; 51701; 80053; 81003; 81015; 82274; 82553; 84484; 85025; 87324; 87449; 93005; 96374; J2405